=== PATIENT | male | born 1990 | race Caucasian/White ===

== ENCOUNTER → 2020-08-14 14:08 | Outpatient (BNVA) | payer OTHER, SELFPAY | PROVIDERS: PCP Internal Medicine; Visit Provider Surgery | DX: Z76.89 Persons encountering health services in other specified circumstances (principal) ==

== ENCOUNTER → 2020-08-18 09:26 | Outpatient (BNVA) | payer OTHER, SELFPAY | PROVIDERS: Visit Provider Dietitian, Registered | DX: Z76.89 Persons encountering health services in other specified circumstances (principal) ==

== ENCOUNTER → 2020-08-28 07:31 | Outpatient (REF) | payer OTHER, SELFPAY ==
--- NOTE | 2020-08-28 07:30 | CA_ITS ---
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 The visually estimated ejection fraction is between 60-65%. - No obvious valvular pathology seen on this study. Findings Left Ventricle Normal left ventricular cavity size. There is normal left ventricular wall thickness. The left ventricular systolic function is normal. The visually estimated ejection fraction is between 60-65%. There is no evidence of regional wall motion abnormalities. Diastolic function is normal for age. E/E prime ratio is <8, consistent with normal filling pressures. Right Ventricle Normal right ventricular cavity size and systolic function. Atria The left atrium is normal in size. The right atrium is normal in size. Aortic Valve There is a normal trileaflet aortic valve. There is no aortic valve stenosis. There is no aortic valve regurgitation. Mitral Valve The mitral valve appears normal. There is trace mitral valve regurgitation. There is no mitral valve stenosis. Pulmonic Valve The pulmonic valve was not well visualized. Tricuspid Valve Normal tricuspid valve structure. There is mild tricuspid valve regurgitation. The pulmonary artery systolic pressure is normal. Great Vessels The aortic annulus, sinuses of valsalva, and asc aorta are normal in size. Venous The inferior vena cava is normal in size and collapses greater than 50% with inspiration. Pericardium/Pleural There is no evidence of pericardial effusion. Prior Study Comparison No prior study available for comparison. Recommendations, Care & Conclusions No obvious valvular pathology seen on this study. Measurements 2D Linear Measurements IVSd: 0.98 0.6-0.9/0.6-1.0 cm LVIDd: 4.69 3.9-5.3/4.2-5.9 cm LVIDd Index: 2.01 2.4-3.2/2.2-3.1 cm/m2 LVIDs: 2.75 2.0-3.6 cm LVPWd: 1.03 0.7-1.1 cm Ao Root: 3.40 2.1-3.5 cm LA Diam: 3.90 2.7-3.8/3.0-4.0 cm LAIDs Index: 1.67 1.5-2.3 cm/m2 LV Mass: 205.09 67-162/88-224 g LV Mass Index: 88.02 43-95/49-115 g/m2 LVOT Diam: 2.00 3.0+(-)1.3 cm Mitral Valve MV Pk E: 1.02 MV PK A: 0.83 MV Decel Time: 158.00 E/A: 1.20 E'Lateral: 13.90 E'Medial: 11.40 E/E' Med: 8.90 E/E' Lat: 7.30 PHT: 46.00 MVA PHT: 4.78 Decel [place]: 6.46 Aortic Valve AoV Pk Jeremy: 1.33 AoV Mn Jeremy: 0.89 AoV VTI: 0.27 AoV Pk Grad: 7.00 Aov Mn Grad: 4.00 ARNALDO Cont.VTI: 2.37 LVOT LVOT Pk Jeremy: 1.03 LVOT Mn Jeremy: 0.67 LVOT VTI: 0.20 LVOT Pk Grad: 4.00 LVOT Mn Grad: 2.00 LVOT Diam: 2.00 LVOT Area: 3.14 Diastolic Function MV Pk E: 1.02 MV Pk A: 0.83 E/A: 1.20 E'Medial: 11.40 E/E' Med: 8.90 E' Laterial: 13.90 E/E' Lat: 7.30 Tricuspid Valve TR Pk Jeremy: 2.06 TR Pk Grad: 17.00 RA Press: 3.00 RVSP: 20.00 Great Vessels Aorta Ao Root-2D: 3.40 2.0-3.7 cm Ao Asc: 3.00 2.1-3.4 cm Pulmonary Valve PV Pk Jeremy: 1.06 Peak PV Grad: 4.00 Updated in Other Vendor System with Status of Final Adrien Singer MD electronically signed on 08/29/2020 9:16:45 AM with status of Final
== END ==
LOC: HO.CARD 07:31
PROVIDERS: PCP Internal Medicine; Visit Provider Internal Medicine Cardiovascular Disease
DX: Z01.810 Encounter for preprocedural cardiovascular examination (principal); R07.9 Chest pain, unspecified; E66.9 Obesity, unspecified; Z68.37 Body mass index [BMI] 37.0-37.9, adult
CPT/HCPCS: 93306

== ENCOUNTER → 2020-09-11 13:19 | Outpatient (BNVA) | payer OTHER, SELFPAY | PROVIDERS: PCP Internal Medicine; Visit Provider Physician Assistant | DX: Z76.89 Persons encountering health services in other specified circumstances (principal) ==

== ENCOUNTER → 2020-11-05 08:10 | Outpatient (BNVA) | payer OTHER, SELFPAY | PROVIDERS: PCP Internal Medicine; Visit Provider Physician Assistant | DX: Z76.89 Persons encountering health services in other specified circumstances (principal) ==

== ENCOUNTER → 2020-12-01 10:32 | Outpatient (BNVA) | payer OTHER, SELFPAY | PROVIDERS: PCP Internal Medicine; Visit Provider Dietitian, Registered ==

== ENCOUNTER 2020-12-22 09:24 | Outpatient (REF) | payer OTHER, SELFPAY ==
[2020-12-22 11:53] LABS: Vitamin D 25-OH Total 21.8 ng/mL (>30)
[2020-12-26 10:42] LABS: Vitamin B1 6 nmol/L (8-30)
== END 2020-12-22 09:25 | disposition home or self-care (01) ==
LOC: HO.LAB 09:24
PROVIDERS: PCP Internal Medicine; Visit Provider Surgery
DX: Z01.818 Encounter for other preprocedural examination (principal); E66.9 Obesity, unspecified; Z68.35 Body mass index [BMI] 35.0-35.9, adult; E51.9 Thiamine deficiency, unspecified; E55.9 Vitamin D deficiency, unspecified
CPT/HCPCS: 36415; 82306; 84425

== ENCOUNTER → 2021-02-16 14:50 | Outpatient (BNVA) | payer OTHER, SELFPAY | PROVIDERS: PCP Internal Medicine; Visit Provider Surgery ==

== ENCOUNTER 2021-04-30 14:49 | Outpatient (REF) | payer OTHER, SELFPAY ==
[2021-04-30 16:58] LABS: Vitamin D 25-OH Total 13.3 ng/mL (>30)
[2021-05-05 12:27] LABS: Vitamin B1 15 nmol/L (8-30)
== END 2021-04-30 14:50 | disposition home or self-care (01) ==
LOC: HO.LAB 14:49
PROVIDERS: PCP Internal Medicine; Referring Provider Internal Medicine; Visit Provider Surgery
DX: Z01.818 Encounter for other preprocedural examination (principal); E66.09 Other obesity due to excess calories; Z68.37 Body mass index [BMI] 37.0-37.9, adult; E51.9 Thiamine deficiency, unspecified
CPT/HCPCS: 36415; 82306; 84425

== ENCOUNTER → 2021-05-14 10:30 | Outpatient (BNVA) | payer OTHER, SELFPAY | PROVIDERS: PCP Internal Medicine; Referring Provider Internal Medicine; Visit Provider Surgery ==

== ENCOUNTER → 2021-05-28 09:43 | Outpatient (BNVA) | payer OTHER, SELFPAY | PROVIDERS: PCP Internal Medicine; Referring Provider Internal Medicine; Visit Provider Surgery ==

== ENCOUNTER → 2021-07-27 14:55 | Outpatient (BNVA) | payer OTHER, SELFPAY | PROVIDERS: PCP Internal Medicine; Referring Provider Internal Medicine; Visit Provider Surgery ==

== ENCOUNTER 2021-08-24 08:49 | Outpatient (REF) | payer OTHER, SELFPAY ==
[2021-08-24 10:59] LABS: Vitamin D 25-OH Total 20.4 ng/mL (>30)
== END 2021-08-24 08:50 | disposition home or self-care (01) ==
LOC: HO.LAB 08:49
PROVIDERS: Absent Provider Surgery; PCP Internal Medicine; Visit Provider Physician Assistant Surgical
DX: Z01.818 Encounter for other preprocedural examination (principal); E66.9 Obesity, unspecified; Z68.36 Body mass index [BMI] 36.0-36.9, adult; E55.9 Vitamin D deficiency, unspecified
CPT/HCPCS: 36415; 82306

== ENCOUNTER 2021-10-25 10:07 | Outpatient (REF) | payer OTHER, SELFPAY ==
--- NOTE | ~2021-10-25 | US_ITS ---
EXAMINATION: US COMPLETE ABDOMEN WITH LIVER ELASTOGRAPHY CLINICAL INFORMATION: Obesity. COMPARISON: None. TECHNIQUE: Real-time imaging of the abdominal viscera. Noninvasive ultrasound liver fibrosis assessment is performed using V[employer] ElastPQ point quantification shear wave elastography (pSWE) with a C5-2 MHz transducer. Multiple elastography samples are obtained. FINDINGS: PANCREAS: The pancreas is not well seen due to body habitus. ABDOMINAL AORTA: The proximal and distal abdominal aorta is of normal caliber. The mid segment is not well visualized. INFERIOR VENA CAVA: Visualized portions are normal. LIVER: The liver demonstrates normal size, contour and diffuse increased echogenicity with areas of focal fatty sparing scattered throughout the liver. No focal lesion or intrahepatic biliary duct dilatation. The right lobe measures 19.0 cm in length. The left lobe measures 15.0 cm in length. Portal flow is hepatopedal. Shear wave liver elastography median stiffness is 1.67 m/s (reference: normal median stiffness is 1.3 m/s or less). IQR/median stiffness to assess sampling precision is 0.3 (reference: good quality data set is IQR/median stiffness of 0.15 or less). GALLBLADDER: Normal. The gallbladder is physiologically distended without evidence of stones, sludge, polyps, wall thickening or pericholecystic fluid. COMMON BILE DUCT: Normal in caliber measuring 0.4 cm in diameter. RIGHT KIDNEY: Normal. No hydronephrosis. No renal calculi or focal parenchymal lesions. The kidney measures 13.0 cm in maximum dimension. LEFT KIDNEY: Normal. No hydronephrosis. No renal calculi or focal parenchymal lesions. The kidney measures 12.0 cm in maximum dimension. SPLEEN: Normal. The spleen measures 12.0 cm in maximum dimension. FREE FLUID: None. US/US abdomen comp w elastography IMPRESSION: 1. Diffuse hepatic steatosis with areas of scattered focal fatty sparing. No solid lesion or intrahepatic ductal dilatation. The rest of the abdominal ultrasound is unremarkable. 2. Liver elastography: Median liver stiffness 1.67 m/s corresponds to ACLD ruled out. REFERENCE: Society of Radiologists in Ultrasound Liver Stiffness Thresholds (2019): LIVER STIFFNESS THRESHOLDS: *Liver Stiffness equal or less than 1.3 m/s: High probability of being normal. *Liver Stiffness less than 1.7 m/s: In the absence of other known clinical signs, rules out compensated advanced chronic liver disease. *Liver Stiffness 1.7-2.1 m/s: Suggestive of compensated advanced chronic liver disease but need further test for confirmation. *Liver Stiffness over 2.1 m/s: Rules in compensated advanced chronic liver disease. *Liver Stiffness over 2.4 m/s: Suggestive of clinically significant portal hypertension. QUALITY OF DATA SET: *IQR/Median value equal or less than 0.15 implies a quality data set. *IQR/Median value over 0.15 implies a poor quality data set. SIGNIFICANT CHANGE FROM PRIOR EXAM: Significant change if liver stiffness measurement is 10% or greater from prior exam. OTHER CONSIDERATIONS: The stage of liver fibrosis may be overestimated in the setting of acute hepatitis, liver inflammation, elevated liver function tests, hepatic vascular congestion, obstructive cholestasis, non-fasting state, and infiltrative diseases such as amyloidosis and lymphoma. In some patients with NAFLD, the liver stiffness thresholds for compensated advanced chronic liver disease may be lower. In causes other than viral hepatitis and NAFLD, liver stiffness thresholds are not well established.
== END 2021-10-25 10:08 | disposition home or self-care (01) ==
LOC: HO.US 10:07
PROVIDERS: PCP Internal Medicine; Visit Provider Surgery
DX: E66.09 Other obesity due to excess calories (principal); J45.909 Unspecified asthma, uncomplicated; K21.9 Gastro-esophageal reflux disease without esophagitis; Z79.899 Other long term (current) drug therapy; Z68.37 Body mass index [BMI] 37.0-37.9, adult
CPT/HCPCS: 76705; 76981

== ENCOUNTER 2021-11-12 07:56 | Outpatient (REF) | payer OTHER, SELFPAY | END 2021-11-12 07:57 | disposition home or self-care (01) | LOC: HO.XRAY 07:56 | PROVIDERS: Visit Provider Surgery | DX: Z13.89 Encounter for screening for other disorder (principal) ==

== ENCOUNTER → 2021-12-03 10:23 | Outpatient (BNVA) | payer OTHER, SELFPAY | PROVIDERS: PCP Internal Medicine; Referring Provider Internal Medicine; Visit Provider Internal Medicine Gastroenterology ==

== ENCOUNTER 2022-03-22 05:41 | Emergency (ER) | payer OTHER, SELFPAY ==
--- NOTE | 2022-03-22 | ECG_ITS ---
Test Reason : Chest pain Blood Pressure : / mmHG Vent. Rate : 135 BPM Atrial Rate : 135 BPM P-R Int : 138 ms QRS Dur : 092 ms QT Int : 280 ms P-R-T Axes : 045 133 -08 degrees QTc Int : 420 ms Sinus tachycardia Right axis deviation Nonspecific ST and T wave abnormality Abnormal ECG When compared with EKG jul 2020, ventricular rate higher. Referred By: Generic ED Physician Electronically Signed By:LAUREN ROBERSON
--- NOTE | ~2022-03-22 | XR_ITS ---
EXAMINATION: XR CHEST CLINICAL INFORMATION: Chest pain COMPARISON: 07/08/2020 TECHNIQUE: Frontal view of the chest was obtained. FINDINGS: Cardiac leads overlie the chest. The lungs are well expanded. There is no focal consolidation, edema, or effusion. No pneumothorax. The cardiomediastinal silhouette is within normal limits. No acute osseous abnormality. XR/XR chest 1V IMPRESSION: Clear lungs.
[2022-03-22 05:51] VITALS: BP 124/83; PULSE 118; RESP 24; TEMP 37.3; O2SAT 97; BMI 39.0
[2022-03-22 06:10] VITALS: BP 114/77; PULSE 111; RESP 20; O2SAT 97
[2022-03-22 06:16] LABS: MANUAL DIFF FLAG NO
[2022-03-22 06:17] LABS: Basophils Percent Auto 0.5 % (0-2); Eosinophils Absolute Auto 0.3 X10*3/uL (0.0-0.4); Eosinophils Percent Auto 3.2 % (0-4); Hemoglobin 14.5 g/dl (14.0-18.0); Imm Gran Abs Auto 0.02 X10*3/uL (0.00-0.03); Imm Gran Pct Auto 0.2 % (0.0-0.4); Lymphocytes Absolute Auto 0.8 X10*3/uL (1.2-4.9); Lymphocytes Percent Auto 9.5 % (20-40); Mean Corpuscular HGB Conc 36.3 g/dl (31.0-36.0); Mean Corpuscular Hemoglobin 31.9 pg (27.0-33.0); Mean Corpuscular Volume 88.1 fL (80.0-98.0); Monocytes Absolute Auto 0.4 X10*3/uL (0.1-1.2); Monocytes Percent Auto 4.7 % (2-11); Neutrophils Absolute Auto 6.7 x10*3/uL (2.0-8.3); Neutrophils Percent Auto 81.9 % (45-73); Platelet Count 142 X10*3/uL (160-400); Red Blood Count 4.54 X10*6/uL (4.60-5.80); Red Cell Distribution Width 13.1 % (11.0-16.0); White Blood Count 8.1 X10*3/uL (4.8-10.8)
[2022-03-22 06:36] LABS: Troponin-I High Sensitivity < 3.5 ng/L (<3.5-35.0)
[2022-03-22 06:42] LABS: Alanine Aminotransferase 95 U/L (0-40); Albumin Level 4.4 g/dL (3.5-5.0); Alkaline Phosphatase 151 U/L (39-117); Anion Gap 14 (12-20); Aspartate Amino Transferase 46 U/L (5-37); Bilirubin Total 0.8 mg/dL (0.0-1.0); Blood Urea Nitrogen 18 mg/dL (9-16); Carbon Dioxide 20 mmol/L (22-29); Chloride 106 mmol/L (96-108); Creatinine Clr Calc Pharmacy 122.2; Estimated Glomerular Filt Rate > 60; Glucose Random 113 mg/dL (60-115); Potassium 4.1 mmol/L (3.3-5.1); Sodium 136 mmol/L (135-145); Total Protein 8.8 g/dL (6.5-8.0)
--- NOTE | 2022-03-22 06:44 | ED_ITS ---
HPI - Chest Pain General Chief Complaint: Chest Pain Stated Complaint: head & chest pain ; 2nd dose moderna 03/21 Time Seen by Provider: 03/22/22 06:36 Source: patient Limitations: no limitations History of Present Illness HPI narrative: This is a 31 years old male presented to emergency room with the chief complaint of chest pain since yesterday, he states that he received his COVID vaccine with Moderna yesterday, his since then he has been having chest pain, he states this similar happened with the 1st dose of COVID vaccine. He denies any shortness of breath, radiation of the pain. The pain is somewhat pleuritic worse when he takes deep breath. MD complaint: chest pain Onset (ago): day(s) (1) Timing of current episode: constant Prior episodes: Yes Onset: during rest Pain location: substernal Pain radiation: none Severity: moderate Quality: aching Relieving factors: nothing Exacerbating factors: inspiration Context: other (covid vaccine) Risk Factors Coronary artery disease risk factors: none Related Data Home Medications Medication Instructions Recorded Confirmed acetaminophen 500 mg tablet 1,000 mg PO Q6H PRN 11/05/20 02/18/22 (Tylenol Extra Strength) citalopram 20 mg tablet 20 mg PO DAILY 04/30/21 02/18/22 phentermine 37.5 mg capsule 37.5 mg PO DAILY 02/18/22 02/18/22 Previous Rx's Medication Instructions Recorded pantoprazole 40 mg tablet,delayed 40 mg PO DAILY #90 tab 12/03/21 release albuterol sulfate 90 mcg/actuation 2 puff INHALATION Q4H PRN #8.5 g 02/18/22 aerosol inhaler fluticasone propionate 44 1 puff INHALATION BID #10.6 g 02/18/22 mcg/actuation HFA aerosol inhaler (Flovent HFA) naproxen 500 mg tablet (Naprosyn) 500 mg PO BID PRN #20 tab 03/22/22 Allergies Allergy/AdvReac Type Severity Reaction Status Date / Time gluten Allergy Mild celiac Verified 02/18/22 14:01 lactose Allergy Mild unknown Verified 02/18/22 14:01 Review of Systems Review of Systems: Yes all other systems are reviewed and are negative Constitutional: Constitutional: Reports no additional constitutional complaints ENT: Reports system reviewed and no additional complaints, except as documented Cardiovascular: Cardiovascular: Reports no additional cardiovascular complaints Respiratory: Respiratory: Reports no additional respiratory complaints Musculoskeletal: Musculoskeletal: Reports no additional musculoskeletal complaints [facility] Past Medical History Medical History Abdominal pain Acute ulcerative colitis POLI (acute kidney injury) Anxiety Asthma Crohn disease De Quervain's disease (tenosynovitis) GERD (gastroesophageal reflux disease) H/O sigmoidoscopy IBS (irritable bowel syndrome) Obesity (BMI 30-39.9) Partial obstruction of colon Portal vein thrombosis SBO (small bowel obstruction) Ulcerative colitis Surgical History H/O total colectomy History of arthroscopy of left shoulder History of endoscopy History of ileostomy History of incision and drainage Hx laparoscopic cholecystectomy Hx of colonoscopy Family History Family History Sister Crohn's disease Father History of ulcerative colitis Sister No problems noted. Sister No problems noted. Mother No problems noted. Brother No problems noted. Brother No problems noted. Social History Social History Housing: Apartment Alcohol intake: current Alcohol intake frequency: holidays/special occasions only Alcohol type: hard liquor Patient Tobacco Use Status: Former Tobacco user Tobacco use type: Cigarette Years Smoked: quit high school e-Cigarette/Vaping Use: Never Used Second Hand Smoke Exposure: No Advance Directives: No Advance Directives Information Provided: No Current occupational status: employed Cognitive needs: No Hearing needs: No Vision needs: No Physical Exam Vital Signs: Vital Signs: Last Vital Signs Temp 99.2 F 03/22/22 05:51 Pulse 105 H 03/22/22 09:19 Resp 20 03/22/22 09:19 BP 104/67 03/22/22 09:19 Pulse Ox 99 03/22/22 09:19 BMI result Body Mass Index 39.0 Const: General: cooperative Nutritional Appearance: average body habitus and well nourished Orientation/consciousness: patient oriented x3 Limitations: no limitations HEENT: Head: Yes normal to inspection General nose exam: Normal external nose present Face and sinus: Yes normal facial exam Mouth: Normal oral and palatal mucosa present Teeth and gingiva: dentition normal Throat: Yes posterior oropharynx normal Neck: Neck: Yes normal visual inspection, Yes full ROM, Yes no lymphadenopathy, Yes no meningeal signs and Yes trachea midline Chest: Chest palpation & inspection: normal inspection of the chest Resp: Effort & Inspection: normal respiratory effort and able to speak in complete sentences Auscultation: clear to auscultation bilaterally Cardio: Jugular venous distension: no JVD Rate: regular rate Rhythm: regular rhythm GI: Inspection: Yes normal to inspection Palpation (GI): Soft to palpation, not firm, nontender and no guarding Skin: General skin exam: no rashes or lesions noted and elasticity normal Neuro: General: patient oriented x3 and no meningeal signs Course Reevaluation(s) Reevaluation #1: feels much better at this time, troponin x2 negative, D-dimer is negative. I think at this point we could discharge the patient home being most likely under reaction to the modern MDM - Chest Pain Lab Data Attestation: I reviewed the patient's lab results. Result diagrams: 03/22/22 06:10 03/22/22 06:10 Labs: Lab Results 03/22/22 03/22/22 03/22/22 Range/Units 06:10 06:10 06:10 WBC 8.1 (4.8-10.8) X10*3/uL RBC 4.54 L (4.60-5.80) X10*6/uL Hgb 14.5 (14.0-18.0) g/dl Hct 40.0 L (42.0-52.0) % MCV 88.1 (80.0-98.0) fL MCH 31.9 (27.0-33.0) pg MCHC 36.3 H (31.0-36.0) g/dl RDW 13.1 (11.0-16.0) % Plt Count 142 L (160-400) X10*3/uL MPV 11.0 (9.4-12.4) fL Immature Gran % (Auto) 0.2 (0.0-0.4) % Neut % (Auto) 81.9 H (45-73) % Lymph % (Auto) 9.5 L (20-40) % [place] % (Auto) 4.7 (2-11) % Eos % (Auto) 3.2 (0-4) % Baso % (Auto) 0.5 (0-2) % Lymph # (Auto) 0.8 L (1.2-4.9) X10*3/uL [place] # (Auto) 0.4 (0.1-1.2) X10*3/uL Eos # (Auto) 0.3 (0.0-0.4) X10*3/uL Baso # (Auto) 0.0 (0.0-0.2) X10*3/uL Abs Immat Gran (auto) 0.02 (0.00-0.03) X10*3/uL Absolute Neuts (auto) 6.7 (2.0-8.3) x10*3/uL Absolute Nucleated RBC 0.000 (0.0-0.012) X10*3/uL Nucleated RBC % (auto) 0.0 (0.0-0.2) /100WBC D-Dimer High Sensitivty NG/ML Sodium 136 (135-145) mmol/L Potassium 4.1 (3.3-5.1) mmol/L Chloride 106 (96-108) mmol/L Carbon Dioxide 20 L (22-29) mmol/L Anion Gap 14 (12-20) BUN 18 H (9-16) mg/dL Creatinine 1.21 (0.5-1.4) mg/dL Estim Creat Clear Calc 122.2 Estimated GFR > 60 Random Glucose 113 (60-115) mg/dL Calcium 10.0 (8.4-10.2) mg/dL Total Bilirubin 0.8 (0.0-1.0) mg/dL AST 46 H (5-37) U/L ALT 95 H (0-40) U/L Alkaline Phosphatase 151 H (39-117) U/L Troponin I High Sens < 3.5 (<3.5-35.0) ng/L Total Protein 8.8 H (6.5-8.0) g/dL Albumin 4.4 (3.5-5.0) g/dL 03/22/22 03/22/22 Range/Units 07:08 08:08 WBC (4.8-10.8) X10*3/uL RBC (4.60-5.80) X10*6/uL Hgb (14.0-18.0) g/dl Hct (42.0-52.0) % MCV (80.0-98.0) fL MCH (27.0-33.0) pg MCHC (31.0-36.0) g/dl RDW (11.0-16.0) % Plt Count (160-400) X10*3/uL MPV (9.4-12.4) fL Immature Gran % (Auto) (0.0-0.4) % Neut % (Auto) (45-73) % Lymph % (Auto) (20-40) % [place] % (Auto) (2-11) % Eos % (Auto) (0-4) % Baso % (Auto) (0-2) % Lymph # (Auto) (1.2-4.9) X10*3/uL [place] # (Auto) (0.1-1.2) X10*3/uL Eos # (Auto) (0.0-0.4) X10*3/uL Baso # (Auto) (0.0-0.2) X10*3/uL Abs Immat Gran (auto) (0.00-0.03) X10*3/uL Absolute Neuts (auto) (2.0-8.3) x10*3/uL Absolute Nucleated RBC (0.0-0.012) X10*3/uL Nucleated RBC % (auto) (0.0-0.2) /100WBC D-Dimer High Sensitivty < 150 NG/ML Sodium (135-145) mmol/L Potassium (3.3-5.1) mmol/L Chloride (96-108) mmol/L Carbon Dioxide (22-29) mmol/L Anion Gap (12-20) BUN (9-16) mg/dL Creatinine (0.5-1.4) mg/dL Estim Creat Clear Calc Estimated GFR Random Glucose (60-115) mg/dL Calcium (8.4-10.2) mg/dL Total Bilirubin (0.0-1.0) mg/dL AST (5-37) U/L ALT (0-40) U/L Alkaline Phosphatase (39-117) U/L Troponin I High Sens < 3.5 (<3.5-35.0) ng/L Total Protein (6.5-8.0) g/dL Albumin (3.5-5.0) g/dL ECG Data ECG #1: Attestation: I personally reviewed and interpreted this ECG as follows: ECG interpretation date: 03/22/22 ECG interpretation time: 06:50 Prior ECG tracings: available for review Interpretation: CLINICAL INFORMATION: Chest pain COMPARISON: 07/08/2020 TECHNIQUE: Frontal view of the chest was obtained. FINDINGS: Cardiac leads overlie the chest. The lungs are well expanded. There is no focal consolidation, edema, or effusion. No pneumothorax. The cardiomediastinal silhouette is within normal limits. No acute osseous abnormality. XR/XR chest 1V IMPRESSION: Clear lungs. ? Pacemaker model: sinus tachycardia rate [address]-T changes Discharge Plan Discharge Clinical Impression: Chest pain Patient Disposition: Home, Self-Care Instructions: Chest Pain (DC) Additional Instructions: please call your primary care physician today make a follow-up appointment, return to the emergency room if you worse develops fevers she is vomiting. Prescriptions: New naproxen [Naprosyn] 500 mg tablet 500 mg PO BID PRN (Reason: PAIN) Qty: 20 0RF No Action phentermine 37.5 mg capsule 37.5 mg PO DAILY 0RF Rx Instructions: must administer 30 minutes before or 1-2 hours after breakfast albuterol sulfate 90 mcg/actuation HFA aerosol inhaler 2 puff inhalation Q4H PRN (Reason: bronchospasm) Qty: 8.5 0RF Flovent HFA 44 mcg/actuation HFA aerosol inhaler 1 puff inhalation BID Qty: 10.6 3RF Rx Instructions: administer with spacer acetaminophen [Tylenol Extra Strength] 500 mg tablet 1,000 mg PO Q6H PRN0RF citalopram 20 mg tablet 20 mg PO DAILY 0RF pantoprazole 40 mg tablet,delayed release (DR/EC) 40 mg PO DAILY Qty: 90 1RF Referrals: Winter Steele MD [Primary Care Provider] - Stand Alone Forms: Work/School Release Interventions: ED Discharge Assessment Last Done: 03/22/22 09:30 Discharge Date/Time: 03/22/22 09:30
[2022-03-22] MEDS: LORazepam 2 MG/ML VIAL 0.5 MG IVPUSH (06:49)
[2022-03-22] MEDS: Ketorolac Tromethamine 30 MG/ML VIAL IVPUSH (06:50)
[2022-03-22 07:32] LABS: D Dimer High Sensitivity < 150 NG/ML
[2022-03-22 07:45] VITALS: BP 109/73; PULSE 99; RESP 18; O2SAT 97
--- NOTE | 2022-03-22 07:47 | PC.NURSE ---
pt resting in the stretcher, shaking his legs, reports that his head is pounding pain at 10/10, normal sinus to tachy on the monitor, will range from 99-110.
[2022-03-22] MEDS: 0.9 % Sodium Chloride 1,000 ML 999 ML IVCONT (08:27)
[2022-03-22] MEDS: Morphine Sulfate 4 MG/ML CARTRIDGE IVPUSH (08:27)
[2022-03-22 08:30] LABS: Troponin-I High Sensitivity < 3.5 ng/L (<3.5-35.0)
[2022-03-22 08:52] VITALS: BP 109/62; PULSE 103; RESP 16; O2SAT 97
[2022-03-22 09:19] VITALS: BP 104/67; PULSE 105; RESP 20; O2SAT 99
--- NOTE | 2022-03-22 09:19 | PC.NURSE ---
pt reports feeling better pain at 6/10
== END 2022-03-22 09:30 | disposition home or self-care (01) ==
PROVIDERS: Emergency Provider Emergency Medicine; PCP Internal Medicine
DX: R07.89 Other chest pain (principal); R51.9 Headache, unspecified; Z20.822 Contact with and (suspected) exposure to COVID-19; Z79.899 Other long term (current) drug therapy; Z87.891 Personal history of nicotine dependence
CPT/HCPCS: 36415; 71045; 80053; 84484; 85025; 85379; 93005; 96361; 96374; 96375; 99284; 99285; J1885; J2060; J2270

== ENCOUNTER 2022-07-12 13:59 | Outpatient (REF) | payer OTHER, SELFPAY ==
--- NOTE | ~2022-07-12 | CT_ITS ---
EXAMINATION: CT ENTEROGRAPHY ABDOMEN AND PELVIS WITH CONTRAST CLINICAL INFORMATION: Periumbilical pain COMPARISON: Previous CT of the abdomen and pelvis most recent July 2018 and abdominal ultrasound October 2021 TECHNIQUE: Study performed with oral VoLumen (1350 mL) and 480 mL of water to distend the abdomen. The patient was injected with 85 mL Omnipaque 350 intravenous contrast which was administered without adverse effect. Coronal and sagittal reformatted images were obtained at the technologist's workstation. This CT examination was performed using dose optimization techniques as appropriate, variously including the following: *Automated exposure control *Adjustment of mA and/or kV according to patient size (this includes techniques or standardized protocols for targeted exams where dose is matched to indication/reason for exam; i.e. extremities or head) *Use of iterative reconstruction technique DLP: 744 mGy-cm FINDINGS: GASTROINTESTINAL FINDINGS: Stomach: Well-distended and normal in appearance. Small intestine: There is a right lower quadrant ileostomy. There is a small parastomal hernia containing small bowel and fat. No evidence of small bowel dilatation, wall thickening or enhancement or stricture is seen. Large intestine: Post colectomy. The rectum is normal. No perirectal abscess. Additional findings: No abnormal enhancement of the vasa recta or significant mesenteric or retroperitoneal lymphadenopathy is seen. No abdominal abscess or fistulous tract demonstrated. ABDOMINAL AND PELVIC CT FINDINGS: Liver, gallbladder, biliary tract: There is fatty infiltration of the liver. There are areas of focal fatty sparing. No focal liver lesion. Contracted gallbladder. No biliary duct dilatation. Pancreas: Normal Spleen: Normal Adrenal glands and kidneys: Normal Ureters and bladder: Normal Lymphovascular structures: There is shotty small bowel mesentery lymphadenopathy. No enlarged lymph nodes. No ascites. 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 Bones: Bilateral femoral head AVN. Lung bases: Normal Small umbilical hernia containing fat. CT/CT enterography IMPRESSION: Post colectomy with right lower quadrant ileostomy. Small parastomal hernia containing small bowel and fat. No evidence of active inflammatory disease of small bowel or rectum. Fatty liver. 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 Small umbilical hernia containing fat. Bilateral femoral head AVN.
[2022-07-12] MEDS: iohexoL 350 MG/ML 100 ML INFUS..BTL IV (15:53)
== END 2022-07-12 14:00 | disposition home or self-care (01) ==
LOC: HO.US 13:59
PROVIDERS: Visit Provider Internal Medicine Gastroenterology
DX: R10.33 Periumbilical pain (principal)
CPT/HCPCS: 74177; Q9967

== ENCOUNTER 2022-12-26 10:21 | Outpatient (REF) | payer OTHER, SELFPAY ==
[2022-12-26 10:34] LABS: MANUAL DIFF FLAG NO
[2022-12-26 11:16] LABS: Basophils Absolute Auto 0.1 X10*3/uL (0.0-0.2); Basophils Percent Auto 0.7 % (0-2); Eosinophils Absolute Auto 0.7 X10*3/uL (0.0-0.4); Eosinophils Percent Auto 9.5 % (0-4); Hematocrit 40.2 % (42.0-52.0); Imm Gran Abs Auto 0.03 X10*3/uL (0.00-0.03); Imm Gran Pct Auto 0.4 % (0.0-0.4); Lymphocytes Absolute Auto 2.4 X10*3/uL (1.2-4.9); Lymphocytes Percent Auto 33.3 % (20-40); Mean Corpuscular HGB Conc 34.8 g/dl (31.0-36.0); Mean Corpuscular Hemoglobin 31.4 pg (27.0-33.0); Mean Corpuscular Volume 90.1 fL (80.0-98.0); Mean Platelet Volume 11.6 fL (9.4-12.4); Monocytes Absolute Auto 0.4 X10*3/uL (0.1-1.2); Monocytes Percent Auto 5.9 % (2-11); Neutrophils Absolute Auto 3.7 x10*3/uL (2.0-8.3); Neutrophils Percent Auto 50.2 % (45-73); Platelet Count 181 X10*3/uL (160-400); Red Blood Count 4.46 X10*6/uL (4.60-5.80); Red Cell Distribution Width 13.2 % (11.0-16.0); White Blood Count 7.3 X10*3/uL (4.8-10.8)
[2022-12-26 11:31] LABS: Estimated Average Glucose 105 mg/dL; Hemoglobin A1c % 5.3 %
[2022-12-26 11:49] LABS: Alanine Aminotransferase 125 U/L (0-40); Albumin Level 4.2 g/dL (3.5-5.0); Alkaline Phosphatase 155 U/L (39-117); Anion Gap 14 (12-20); Aspartate Amino Transferase 52 U/L (5-37); Bilirubin Total 0.7 mg/dL (0.0-1.0); Blood Urea Nitrogen 16 mg/dL (9-16); C Reactive Protein 0.27 mg/dL (< or = 0.50); Calcium 9.4 mg/dL (8.4-10.2); Carbon Dioxide 21 mmol/L (22-29); Chloride 108 mmol/L (96-108); Cholesterol 226 mg/dL; Estimated Glomerular Filt Rate > 60; Glucose Random 131 mg/dL (60-115); HDL Cholesterol 37 mg/dL; Potassium 4.1 mmol/L (3.3-5.1); Sodium 139 mmol/L (135-145); Total Protein 7.5 g/dL (6.5-8.0); Triglycerides 422 mg/dL
[2022-12-26 11:51] LABS: Erythrocyte Sedimentation Rate 9 MM/HR (0-15)
[2022-12-26 12:18] LABS: Folate 9.3 ng/mL (> or = 4.0); Free T4 (Free Thyroxine) 0.89 ng/dL (0.71-1.85); Thyroid Stimulating Hormone 1.77 uIU/mL (0.32-4.0); Vitamin B12 473 pg/mL (200-900)
== END 2022-12-26 10:22 | disposition home or self-care (01) ==
LOC: HO.LAB 10:21
PROVIDERS: PCP Internal Medicine; Visit Provider Internal Medicine
DX: E78.00 Pure hypercholesterolemia, unspecified (principal)
CPT/HCPCS: 36415; 80053; 80061; 82607; 82746; 83036; 84439; 84443; 85025; 85652; 86140

== ENCOUNTER 2023-02-22 10:04 | Outpatient (REF) | payer OTHER, SELFPAY ==
--- NOTE | ~2023-02-22 | XR_ITS ---
EXAMINATION: XR BILATERAL HIPS WITH AP PELVIS CLINICAL INFORMATION: Right hip pain COMPARISON: 07/12/2022 TECHNIQUE: AP view of the pelvis and single views of each hip were obtained. FINDINGS: No acute fracture or dislocation. 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 Sacroiliac and hip joints are normal. Pubic symphysis is normal. No abnormal soft tissue calcifications. Contrasted urinary bladder and ureters overlies and partially obscures pelvic structures. 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
[2023-02-22 10:40] LABS: Estimated Average Glucose 105 mg/dL; Hemoglobin A1C 138.4899 umol/L; Hemoglobin A1c % 5.3 %
[2023-02-22 10:57] LABS: Alanine Aminotransferase 100 U/L (0-40); Albumin Level 4.7 g/dL (3.5-5.0); Alkaline Phosphatase 133 U/L (39-117); Anion Gap 12 (12-20); Aspartate Amino Transferase 53 U/L (5-37); Bilirubin Total 1.1 mg/dL (0.0-1.0); Blood Urea Nitrogen 16 mg/dL (9-16); Calcium 9.8 mg/dL (8.4-10.2); Carbon Dioxide 26 mmol/L (22-29); Chloride 105 mmol/L (96-108); Cholesterol 234 mg/dL; Estimated Glomerular Filt Rate > 60; Glucose Random 97 mg/dL (60-115); HDL Cholesterol 37 mg/dL; LDL Cholesterol Calculated 146 mg/dl; Potassium 4.6 mmol/L (3.3-5.1); Sodium 138 mmol/L (135-145); Total Protein 7.9 g/dL (6.5-8.0); Triglycerides 259 mg/dL
== END 2023-02-22 10:05 | disposition home or self-care (01) ==
LOC: HO.XRAY 10:04
PROVIDERS: PCP Internal Medicine; Visit Provider Internal Medicine
DX: E78.00 Pure hypercholesterolemia, unspecified (principal); M25.551 Pain in right hip; M25.552 Pain in left hip; R73.9 Hyperglycemia, unspecified
CPT/HCPCS: 36415; 73521; 80053; 80061; 83036

== ENCOUNTER → 2023-04-10 14:46 | Outpatient (BNVA) | payer OTHER, SELFPAY | PROVIDERS: PCP Internal Medicine; Visit Provider Physician Assistant ==

== ENCOUNTER 2023-10-06 08:50 | Outpatient (AMB) | payer BC, SELFPAY ==
--- NOTE | 2023-10-06 08:51 | MHC.PC.OV ---
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[employer] Required: No Accompanied by: Self / Same As Patient Allergies gluten Allergy (Mild, Verified 10/06/23 08:55) celiac lactose Allergy (Mild, Verified 10/06/23 08:55) unknown Tobacco use date assessed: 12/21/22 Dental Screening Dental Screen Date: 10/06/23 Did you have a dental visit in the last 12 months?: No Did you have a dental problem in the last 6 months where you did not have access to dental care?: No Was dental information given to patient?: Patient has dentist HPI HPI Comments History of Present Illness Details 32-year-old male past medical history significant for hypercholesteremia, generalized anxiety disorder, GERD, asthma, fatty liver disease, IBD, ileostomy and placed 2020,palpitations. Patient of Dr. Steele presents today for preop appointment for gastric sleeve, Dr. Arauz at [facility] in [place]. November 22 2019. Under general anesthesia. Patient states he has been cleared by his Photographic Intelligence Officer, Dr. Lewis, Pre K Special Education Teacher Dr. Andujar as well as his Exhaust Emissions Automotive Technician. Patient Denies CP, palpitations, sob and Syncope. While on his Verapamil for palpitations. EKG in office: SR, Right axis deviation, no sig. abnormalities. Pre-op labs ordered. [facility] Medical History (Reviewed 04/10/23 @ 15:08 by Sheba Cameron [facility]) Abdominal pain Acute ulcerative colitis POLI (acute kidney injury) Asthma BMI 35.0-35.9,adult Body mass index (BMI) of 37.0 to 37.9 in adult Crohn disease De Quervain's disease (tenosynovitis) GERD (gastroesophageal reflux disease) H/O sigmoidoscopy IBS (irritable bowel syndrome) Obesity (BMI 30-39.9) Partial obstruction of colon Portal vein thrombosis SBO (small bowel obstruction) Ulcerative colitis Surgical History Hx of colonoscopy Hx laparoscopic cholecystectomy History of ileostomy H/O total colectomy History of incision and drainage History of arthroscopy of left shoulder History of endoscopy Family History Sister Crohn's disease Father History of ulcerative colitis Sister No problems noted. Sister No problems noted. Mother Substance use disorder Mental health disorder Brother No problems noted. Brother No problems noted. Social History Housing: House Alcohol intake: current Alcohol intake frequency: holidays/special occasions only Alcohol type: hard liquor Patient Tobacco Use Status: Former Tobacco user Tobacco use type: Cigarette Years Smoked: quit high school e-Cigarette/Vaping Use: Never Used Second Hand Smoke Exposure: No Current occupational status: employed Cognitive needs: No Hearing needs: No Vision needs: No Questionnaire Thrive Questionnaire Date Thrive assessed: 12/21/22 CHERYL-7 AMB Questionnaire CHERYL-7 Date CHERYL - 7 assessed: 12/21/22 Source: Developed by Drs. Raymond Hein, Kanwal Coello, Dick Henning and colleagues, with an educational monroe from [employer]. Review of Systems Const Denies chills, Denies fatigue, Denies fever(s) and Denies poor appetite Eyes Denies no additional complaints ENT Reports Normal hearing present Card Denies chest pain, Denies syncope, Denies rapid heart rate and Denies dyspnea Resp Denies cough and Denies dyspnea GI Denies change in stool character, Denies constipation, Denies diarrhea, Denies nausea and Denies vomiting Denies dysuria, Denies urinary frequency and Denies urinary urgency Neuro Reports Normal hearing present, Denies confusion and Denies syncope Psych Denies confusion Endo Denies fatigue Physical exam (Primary Care) Vital Signs: Last Vital Signs Pulse 100 10/06/23 08:52 BP 130/74 10/06/23 08:52 Pulse Ox 97 10/06/23 08:52 Oxygen Delivery Method Room Air 10/06/23 08:52 BMI result Body Mass Index 43.4 Tobacco/Smoking Status: Tobacco use Status Tobacco use date assessed 12/21/22 10/06/23 08:57 Patient Tobacco Use Status Former Tobacco user 10/06/23 08:57 Tobacco use type Cigarette 10/06/23 08:57 e-Cigarette/Vaping Use Never Used 10/06/23 08:57 Thrive Assessment: Date of Thrive Assessment Date Thrive assessed 12/21/22 10/06/23 08:57 Const General: No confusion Orientation/consciousness: No confusion HENMT Head: Yes normocephalic and Yes atraumatic Eyes Conjunctivae: conjunctivae normal Chest Chest palpation & inspection: normal inspection of the chest Resp Effort & Inspection: normal respiratory effort Auscultation: clear to auscultation bilaterally, no crackles, no rhonchi and no wheezes Cardio Rate: regular rate Rhythm: regular rhythm Heart sounds: S1 normal heart sound present and S2 normal heart sound present Peripheral pulses: dorsalis pedis present GI Inspection: Yes normal to inspection General: Yes no CVA tenderness Back/Spine/Pelvis Back: no CVA tenderness Neuro General: No confusion Cranial nerves: Yes Normal hearing present Extrem General: No edema Assessment and Plan Assessment & Plan (1) Preop examination: Code(s): Z01.818 - Encounter for other preprocedural examination Plan: EKG completed office noted in HPI. Preop labs ordered. Once preop labs reviewed will make an addendum to this note with patient able to proceed with scheduled gastric sleeve surgery. Please take verapamil with small sip of water prior to procedure. Avoid ASA, ibuprofen ore any blood thinner medication 1 week prior to procedure. (2) Inflammatory bowel disease: Comment: subtotal colectomy and ileostomy 10/2020 Code(s): K52.9 - Noninfective gastroenteritis and colitis, unspecified Plan: Continue to follow with gastroenterology. (3) Palpitations: Code(s): R00.2 - Palpitations Plan: Continue on verapamil 120 mg b.i.d.. Continue to follow with 2nd grade teacher. Plan Keep scheduled follow-up with PCP or follow-up sooner if needed Orders: Orders Prothrombin Time INR Today Z01.812 - Encounter for preprocedural laboratory examination Complete Blood Count Auto Diff Today Z13.0 - Encounter for screening for diseases of the blood and blood-forming organs and certain disorders involving the immune mechanism Comprehensive Met. Panel Today Z.812 - Encounter for preprocedural laboratory examination TSH reflex Free T4 Today Z13.29 - Encounter for screening for other suspected endocrine disorder Coding Level of Care Code Est Pt Level 3 (70893) Diagnoses Preop examination Z.818 Inflammatory bowel disease K52.9 Palpitations R00.2
[2023-10-06 08:52] VITALS: BP 130/74; PULSE 100; O2SAT 97; BMI 43.4
== END 2023-10-06 09:36 | disposition home or self-care (01) ==
PROVIDERS: PCP Internal Medicine; Visit Provider Nurse Practitioner Family
DX: Z01.818 Encounter for other preprocedural examination (principal); K52.9 Noninfective gastroenteritis and colitis, unspecified; R00.2 Palpitations
CPT/HCPCS: 99213

== ENCOUNTER 2023-10-07 08:01 | Outpatient (REF) | payer BC, SELFPAY ==
[2023-10-07 08:29] LABS: MANUAL DIFF FLAG NO
[2023-10-07 08:36] LABS: Basophils Percent Auto 0.4 % (0-2); Eosinophils Absolute Auto 0.6 X10*3/uL (0.0-0.4); Eosinophils Percent Auto 6.4 % (0-4); Hematocrit 40.9 % (42.0-52.0); Hemoglobin 14.6 g/dl (14.0-18.0); Imm Gran Abs Auto 0.03 X10*3/uL (0.00-0.03); Imm Gran Pct Auto 0.3 % (0.0-0.4); Lymphocytes Absolute Auto 1.9 X10*3/uL (1.2-4.9); Lymphocytes Percent Auto 19.4 % (20-40); Mean Corpuscular HGB Conc 35.7 g/dl (31.0-36.0); Mean Corpuscular Hemoglobin 32.2 pg (27.0-33.0); Mean Corpuscular Volume 90.3 fL (80.0-98.0); Mean Platelet Volume 11.2 fL (9.4-12.4); Monocytes Absolute Auto 0.7 X10*3/uL (0.1-1.2); Monocytes Percent Auto 7.1 % (2-11); Neutrophils Absolute Auto 6.4 x10*3/uL (2.0-8.3); Neutrophils Percent Auto 66.4 % (45-73); Platelet Count 177 X10*3/uL (160-400); Red Blood Count 4.53 X10*6/uL (4.60-5.80); Red Cell Distribution Width 12.7 % (11.0-16.0); White Blood Count 9.7 X10*3/uL (4.8-10.8)
[2023-10-07 08:46] LABS: INTERNATIONAL NORM RATIO 0.9 (0.9-1.1); Prothrombin Time 11.4 SEC (11.1-13.3)
[2023-10-07 09:07] LABS: Alanine Aminotransferase 94 U/L (0-40); Albumin Level 4.4 g/dL (3.5-5.0); Alkaline Phosphatase 124 U/L (39-117); Anion Gap 14 (12-20); Aspartate Amino Transferase 56 U/L (5-37); Bilirubin Total 1.1 mg/dL (0.0-1.0); Blood Urea Nitrogen 16 mg/dL (9-16); Calcium 9.5 mg/dL (8.4-10.2); Carbon Dioxide 23 mmol/L (22-29); Chloride 108 mmol/L (96-108); Estimated Glomerular Filt Rate > 60; Glucose Random 101 mg/dL (60-115); Sodium 141 mmol/L (135-145)
[2023-10-07 09:17] LABS: TSH reflex Free T4 2.05 uIU/mL (0.32-4.0)
== END 2023-10-07 08:02 | disposition home or self-care (01) ==
LOC: HO.LAB 08:01
PROVIDERS: Visit Provider Nurse Practitioner Family
DX: Z01.812 Encounter for preprocedural laboratory examination (principal); Z13.0 Encounter for screening for diseases of the blood and blood-forming organs and certain disorders involving the immune mechanism; Z13.29 Encounter for screening for other suspected endocrine disorder
CPT/HCPCS: 36415; 80053; 84443; 85025; 85610

== ENCOUNTER 2023-11-29 13:34 | Outpatient (AMB) | payer BC, SELFPAY ==
[2023-11-29 13:38] VITALS: BP 132/80; PULSE 98; O2SAT 98; BMI 40.6
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
== END 2023-11-29 14:20 | disposition home or self-care (01) ==
PROVIDERS: PCP Internal Medicine; Visit Provider Internal Medicine
DX: Z23 Encounter for immunization (principal); M87.00 Idiopathic aseptic necrosis of unspecified bone; M25.551 Pain in right hip; M25.552 Pain in left hip; R00.2 Palpitations; K76.0 Fatty (change of) liver, not elsewhere classified; K21.9 Gastro-esophageal reflux disease without esophagitis; K52.9 Noninfective gastroenteritis and colitis, unspecified; E78.00 Pure hypercholesterolemia, unspecified; F41.1 Generalized anxiety disorder; Z90.3 Acquired absence of stomach [part of]
CPT/HCPCS: 90471; 90686; 99214

== ENCOUNTER 2024-01-03 18:35 | Outpatient (REF) | payer BC, SELFPAY ==
--- NOTE | ~2024-01-03 | MR_ITS ---
EXAMINATION: MR HIP WITHOUT CONTRAST, RIGHT CLINICAL INFORMATION: Idiopathic aseptic necrosis. 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 COMPARISON: X-ray 02/22/2023. CT 07/12/2022. TECHNIQUE: MRI of the right hip was obtained using routine sequences on a high-field strength magnet. FINDINGS: BONE/JOINTS: Anatomic right hip alignment. Hip joint space is maintained. No significant chondral loss. There is a curvilinear T2 bright/low T1 signal focus in the femoral head, which measures approximately 1.7 x 2.2 cm (transverse, AP). Findings consistent with a focus of avascular necrosis. Similar findings seen on the prior CT scan. No evidence of subchondral collapse. No evidence of significant stress injury. LABRUM: No labral tear is seen. No paralabral cyst. MUSCLES/TENDONS: Mild distal gluteus minimus and medius tendinosis. Remainder of the tendons are intact. No muscle tear. JOINT FLUID/BURSA: No significant greater trochanteric or iliopsoas bursitis. Small hip joint fluid. INTRAPELVIS STRUCTURES: No groin lymphadenopathy. No acute findings in the pelvis. On the coronal T1 sequence of the pelvis, SI joints and symphysis pubis are intact. MR/MR hip RT wo con IMPRESSION: 1. Focus of abnormal signal in the femoral head measuring approximately 1.7 x 2.2 cm, consistent with a focus of avascular necrosis. This correlates with the finding seen on the prior CT. No evidence of subchondral collapse. 2. Mild distal gluteus minimus and medius tendinosis.
--- NOTE | ~2024-01-03 | MR_ITS ---
EXAMINATION: MR HIP WITHOUT CONTRAST, LEFT CLINICAL INFORMATION: Idiopathic aseptic necrosis. Patient reports bilateral hip pain, long-term steroid use due to Crohn's and colitis. COMPARISON: X-ray 02/22/2023. CT 07/12/2022. TECHNIQUE: MRI of the left hip was obtained using routine sequences on a high-field magnet. FINDINGS: BONE/JOINTS: Anatomic left hip alignment. Joint space is maintained. No significant chondral loss. Focus of abnormal bright T2, low T1 signal in the femoral head measuring approximately 2.7 x 1.7 cm (AP, transverse). Findings are consistent with a focus of avascular necrosis, correlating with the prior CT findings. No evidence of subchondral collapse. No evidence of significant stress injury. LABRUM: No labral tear is seen. MUSCLES/TENDONS: Tendons intact. No muscle tear. JOINT FLUID/BURSA: No significant greater trochanteric or iliopsoas bursitis. Small hip joint fluid. INTRAPELVIS STRUCTURES: Subcentimeter left groin lymph nodes, nonspecific. No acute findings in the pelvis. MR/MR hip LT wo con IMPRESSION: 1. Abnormal signal focus in the femoral head measuring 2.7 x 1.7 cm. Findings correlate with the prior CT findings, and consistent with a focus of avascular necrosis. No evidence of subchondral collapse. 2. No labral tear is seen.
== END 2024-01-03 18:36 | disposition home or self-care (01) ==
LOC: HO.MRI 18:35
PROVIDERS: PCP Internal Medicine; Visit Provider Physician Assistant
DX: M87.051 Idiopathic aseptic necrosis of right femur (principal); M87.052 Idiopathic aseptic necrosis of left femur
CPT/HCPCS: 73721

== ENCOUNTER 2024-01-12 11:01 | Outpatient (AMB) | payer BC, SELFPAY ==
[2024-01-12 11:24] VITALS: BP 110/82; PULSE 84; O2SAT 98; BMI 39.3
--- NOTE | 2024-01-12 11:24 | A.OFFPC_ITS ---
Vital Signs 01/12/24 11:24 Height 5 ft 11 in Weight 282 lb 0.3 oz BMI 39.3 BP 110/82 Blood Pressure Location Lt brachial Position Sitting Pulse 84 Pulse Source Pulse Oximeter Pulse Oximetry (%) 98 Oxygen Delivery Method Room Air Intake Visit Reasons: pe Intake Note: Patient is here today for a physical. 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 Pattern Required: No Allergies gluten Allergy (Mild, Verified 01/12/24 11:24) celiac lactose Allergy (Mild, Verified 01/12/24 11:24) unknown Medication List - Last Reconciled 01/12/24 by Winter Steele MD acetaminophen (Tylenol Extra Strength) 1,000 mg PO Q6H PRN albuterol sulfate 90 mcg/actuation 2 puffs inhalation Q4H PRN fluticasone propionate 110 mcg/actuation 2 puffs inhalation BID oxybutynin chloride ER 5 mg PO DAILY verapamil ER 120 mg PO BID Tobacco use date assessed: 01/12/24 Dental Screening Dental Screen Date: 01/12/24 Did you have a dental visit in the last 12 months?: Yes Did you have a dental problem in the last 6 months where you did not have access to dental care?: No Was dental information given to patient?: Patient has dentist HPI pe HPI Details 33-year-old obese male with a history of avascular bone necrosis with bilateral hip pain fatty liver inflammatory bowel disease hypercholesterolemia generalized anxiety disorder he did have a history of sleeve gastrectomy. Patient is here for physical exam. Hip MRI done showing abnormal signal focus of the femoral head consistent with avascular necrosis patient also follows up with cardiology December 2023 due to dizziness workup was advised with stress and echo. Patient has had also biopsy of the liver showing steatosis grade 3 and steatohepatitis stage II of for this was in November 2023. lip bite from dog- resolved. 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 phoe 120ast 39 alt 57 03/10/2024 for the palpitations - on verapamil stress test end of month has ileostomy RLQ PFSH Medical History Abdominal pain Acute ulcerative colitis POLI (acute kidney injury) Asthma BMI 35.0-35.9,adult Body mass index (BMI) of 37.0 to 37.9 in adult Crohn disease De Quervain's disease (tenosynovitis) GERD (gastroesophageal reflux disease) H/O sigmoidoscopy IBS (irritable bowel syndrome) Obesity (BMI 30-39.9) Partial obstruction of colon Portal vein thrombosis SBO (small bowel obstruction) Ulcerative colitis Surgical History Hx of colonoscopy Hx laparoscopic cholecystectomy History of ileostomy H/O total colectomy History of incision and drainage History of arthroscopy of left shoulder History of endoscopy Family History Sister Crohn's disease Father History of ulcerative colitis Sister No problems noted. Sister No problems noted. Mother Substance use disorder Mental health disorder Brother No problems noted. Brother No problems noted. Social History (Updated 01/12/24 @ 12:29 by Winter Steele MD) Housing: House Alcohol intake: current Alcohol intake frequency: holidays/special occasions only Alcohol type: hard liquor Comment: rarely not even once a year Patient Tobacco Use Status: Former Tobacco user Tobacco use type: Cigarette Years Smoked: quit high school, marijuana, tincture, no smoking e-Cigarette/Vaping Use: Never Used Second Hand Smoke Exposure: No Current occupational status: employed Cognitive needs: No Hearing needs: No Vision needs: No Questionnaire Thrive Questionnaire Date Thrive assessed: 11/29/23 I am a: Patient What is your living situation today?: I have a steady place to live Within the past 12 months, did the food you bought not last and you didn't have the money to get more?: Never true Within the past 12 months, did you worry whether your food would run out before you got money to buy more?: Never true Do you have trouble paying for medicines?: No Do you have trouble getting transportation to medical appointments?: No Do you have trouble paying your heating and electricity bill?: No Do you have trouble taking care of your child, family member or friend?: No Do you have trouble with day-to-day activities such as bathing, preparing meals, shopping, managing finances, etc.?: No Are you currently unemployed and looking for a job?: No Are you interested in more education?: No Please select the resources that you would like help with: None THRIVE Score: 0 AUDIT C Alcohol Use Questionnaire (AUDIT-C) 1. How often do you have a drink containing alcohol?: Monthly or less 2. How many drinks containing alcohol do you have on a typical day when you are drinking?: 1 or 2 3. How often do you have six or more drinks on one occasion?: Never Total Score: 1 CHERYL-7 AMB Questionnaire CHERYL-7 Date CHERYL - 7 assessed: 11/29/23 Feeling nervous, anxious, or on edge: 0 = Not at all Not being able to stop or control worryin = Not at all Worrying too much about different things: 0 = Not at all Trouble relaxin = Not at all Being so restless that it is hard to sit still: 0 = Not at all Becoming easily annoyed or irritable: 0 = Not at all Feeling afraid as if something awful might happen: 0 = Not at all Total CHERYL-7 score (0-4 normal; 5-9 mild; 10-14 moderate; 15-21 severe): 0 Source: Developed by Drs. Raymond Hein, Kanwal Coello, Dick Henning and colleagues, with an educational monroe from [employer]. Review of Systems Const Denies poor appetite and Denies weakness Eyes Denies no additional complaints ENT Reports Normal hearing present, Denies dizziness, Denies nasal congestion, Denies tinnitus and Denies sore throat Card Denies chest pain, Denies syncope, Denies rapid heart rate and Denies dyspnea Resp Denies cough and Denies dyspnea GI Denies change in stool character, Reports constipation, Denies diarrhea, Denies nausea and Denies vomiting Denies dysuria and Denies urinary frequency Neuro Reports Normal hearing present, Denies confusion, Denies dizziness, Denies syncope and Denies weakness Psych Denies confusion Physical exam (Primary Care) Vital Signs: Last Vital Signs Pulse 84 01/12/24 11:24 BP 110/82 01/12/24 11:24 Pulse Ox 98 01/12/24 11:24 Oxygen Delivery Method Room Air 01/12/24 11:24 BMI result Body Mass Index 39.3 Tobacco/Smoking Status: Tobacco use Status Tobacco use date assessed 01/12/24 01/12/24 11:25 Patient Tobacco Use Status Former Tobacco user 01/12/24 11:25 Tobacco use type Cigarette 01/12/24 11:25 e-Cigarette/Vaping Use Never Used 01/12/24 11:25 Thrive Assessment: Date of Thrive Assessment Date Thrive assessed 11/29/23 01/12/24 11:25 Const General: No confusion Orientation/consciousness: No confusion HENMT Head: Yes normocephalic Ears: external ears normal and TM's normal bilaterally Face and sinus: Yes normal facial exam Mouth: moist mucous membranes Throat: Yes tonsils normal Eyes Conjunctivae: conjunctivae normal Pupils: Equal, round and reactive pupils present and Pupil accommodation reflex normal Direct Ophthalmoscopy: normal light reflex Neck Neck: No lymphadenopathy Thyroid: Thyroid normal Chest Chest palpation & inspection: normal inspection of the chest Resp Effort & Inspection: normal respiratory effort and no audible wheezes Auscultation: clear to auscultation bilaterally, no crackles, no wheezes and lung sounds not diminished Cardio Rate: regular rate Rhythm: regular rhythm Peripheral pulses: radial pulses present and dorsalis pedis present GI Other: RLQ ielostomy Palpation (GI): no masses Auscultation: normal bowel sounds and normoactive bowel sounds Male General Exam: Yes normal external exam Skin General skin exam: no rashes or lesions noted Rashes: no rashes Neuro General: No confusion Cranial nerves: Yes Equal, round and reactive pupils present and Yes Normal hearing present Cognition (Neuro): normal cognition Gait exam (Neuro): Normal gait present Motor exam (neuro): 5/5 motor strength present throughout Deep tendon reflexes (DTR's): Right brachioradialis reflex intensity grade: 2+, Left brachioradialis reflex intensity grade: 2+, Right patellar reflex intensity grade: 2+ and Left patellar reflex intensity grade: 2+ Extrem General: No edema Assessment and Plan Assessment & Plan (1) Annual physical exam: Code(s): Z00.00 - Encounter for general adult medical examination without abnormal findings (2) Bilateral hip pain: Comment: ost colectomy with right lower quadrant ileostomy. Small parastomal hernia containing small bowel and fat. No evidence of active inflammatory disease of small bowel or rectum. Fatty liver. 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 Small umbilical hernia containing fat. Bilateral femoral head AVN. Code(s): M25.551 - Pain in right hip; M25.552 - Pain in left hip Plan: Patient follows up with orthopedics (3) Avascular bone necrosis: Code(s): M87.00 - Idiopathic aseptic necrosis of unspecified bone Plan: Patient follows up with orthopedics (4) Fatty liver: Comment: [address] biopsy done November 2023 grade 3 steatosis with steatohepatitis 2/ Code(s): K76.0 - Fatty (change of) liver, not elsewhere classified Plan: Low-fat diet and exercise need to lose weight (5) GERD (gastroesophageal reflux disease): Code(s): K21.9 - Gastro-esophageal reflux disease without esophagitis Plan: Avoid the foods that causes that usually spicy foods, tomato products, juices, coffee, soda and foods that your sensitive to. After eating do not lie down, allow 3-4 hours before in lie down. And keep the head of bed above 30 degrees to avoid the acid from going up. (6) Generalized anxiety disorder: Comment: Declined counseling February 2022 Code(s): F41.1 - Generalized anxiety disorder (7) Hypercholesterolemia: Code(s): E78.00 - Pure hypercholesterolemia, unspecified Plan: Avoid fried foods, chicken skin, eggs, butter margarine, pastries and meat. Be it pork or beef they have a lot of cholesterol LDL goal of less than 130 and triglyceride of less than 150 Coding Level of Care Code Est Pt Prev Care 18-39y(87571) Diagnoses Annual physical exam Z00.00 Bilateral hip pain M25.551; M25.552 Avascular bone necrosis M87.00 Fatty liver K76.0 GERD (gastroesophageal reflux disease) K21.9 Generalized anxiety disorder F41.1 Hypercholesterolemia E78.00
== END 2024-01-12 12:39 | disposition home or self-care (01) ==
PROVIDERS: PCP Internal Medicine; Visit Provider Internal Medicine
DX: Z00.00 Encounter for general adult medical examination without abnormal findings (principal); M25.551 Pain in right hip; M25.552 Pain in left hip; M87.00 Idiopathic aseptic necrosis of unspecified bone; K76.0 Fatty (change of) liver, not elsewhere classified; K21.9 Gastro-esophageal reflux disease without esophagitis; F41.1 Generalized anxiety disorder; E78.00 Pure hypercholesterolemia, unspecified
CPT/HCPCS: 99395

== ENCOUNTER 2024-01-19 12:47 | Outpatient (AMB) | payer BC, SELFPAY ==
--- NOTE | 2024-01-19 12:48 | A.OFFVIS_ITS ---
Intake Vital Signs 01/19/24 12:49 Height 5 ft 11 in Weight 282 lb BMI 39.3 Intake Visit Reasons: Tele-Left hip MRI review Intake Note: Alex presents today for a telehealth visit for his left hip MRI review. Allergies gluten Allergy (Mild, Verified 01/19/24 12:49) celiac lactose Allergy (Mild, Verified 01/19/24 12:49) unknown HPI HPI Comments History of Present Illness Details 33 yo male presents for telehealth MRI f /u bilat hip. [facility] Medical History Abdominal pain Acute ulcerative colitis POLI (acute kidney injury) Asthma BMI 35.0-35.9,adult Body mass index (BMI) of 37.0 to 37.9 in adult Crohn disease De Quervain's disease (tenosynovitis) GERD (gastroesophageal reflux disease) H/O sigmoidoscopy IBS (irritable bowel syndrome) Obesity (BMI 30-39.9) Partial obstruction of colon Portal vein thrombosis SBO (small bowel obstruction) Ulcerative colitis Surgical History Hx of colonoscopy Hx laparoscopic cholecystectomy History of ileostomy H/O total colectomy History of incision and drainage History of arthroscopy of left shoulder History of endoscopy Family History Sister Crohn's disease Father History of ulcerative colitis Sister No problems noted. Sister No problems noted. Mother Substance use disorder Mental health disorder Brother No problems noted. Brother No problems noted. Social History Housing: House Alcohol intake: current Alcohol intake frequency: holidays/special occasions only Alcohol type: hard liquor Comment: rarely not even once a year Patient Tobacco Use Status: Former Tobacco user Tobacco use type: Cigarette Years Smoked: quit high school, marijuana, tincture, no smoking e-Cigarette/Vaping Use: Never Used Second Hand Smoke Exposure: No Current occupational status: employed Cognitive needs: No Hearing needs: No Vision needs: No Physical Exam Vital Signs: BMI result Body Mass Index 39.3 Resp Effort & Inspection: normal respiratory effort and able to speak in complete sentences Results Reviewed Results Reviewed: MRi rt hip IMPRESSION: 1. Focus of abnormal signal in the femoral head measuring approximately 1.7 x 2.2 cm, consistent with a focus of avascular necrosis. This correlates with the finding seen on the prior CT. No evidence of subchondral collapse. 2. Mild distal gluteus minimus and medius tendinosis. MR hip LT wo con IMPRESSION: 1. Abnormal signal focus in the femoral head measuring 2.7 x 1.7 cm. Findings correlate with the prior CT findings, and consistent with a focus of avascular necrosis. No evidence of subchondral collapse. 2. No labral tear is seen. Assessment & Plan Assessment & Plan (1) Avascular necrosis of bones of both hips: Code(s): M87.051 - Idiopathic aseptic necrosis of right femur; M87.052 - Idiopathic as eptic necrosis of left femur Plan We discussed the findings on the MRI. I explained at this time we will continue with conservative management as there is no evidence of femoral head collapse. He will continue activities as tolerated and if symptoms worsen he will contact our office, otherwise, f/u in 1 year for repeat MRI. Telehealth Telehealth Location of provider rendering services: practice address Location of patient: address on file Patient Identification confirmed using: Name, : Yes Telehealth method: voice only Patient verbally consented to treatment: Yes Patient verbally consented to billing insurance company: Yes Patient informed of any privacy concerns related to visit: Yes Minutes spent on Phone/Video with Pt.: 15 Coding Level of Care Code Tele Est Pt Level 3 (62702) Diagnoses Avascular necrosis of bones of both hips M87.051; M87.052
[2024-01-19 12:49] VITALS: BMI 39.3
== END 2024-01-19 12:50 | disposition home or self-care (01) ==
LOC: HO.HOS 12:47
PROVIDERS: PCP Internal Medicine; Visit Provider Physician Assistant
DX: M87.051 Idiopathic aseptic necrosis of right femur (principal); M87.052 Idiopathic aseptic necrosis of left femur
CPT/HCPCS: 99442

== ENCOUNTER → 2024-01-19 12:47 | Outpatient (BNVA) | payer BC, SELFPAY | PROVIDERS: PCP Internal Medicine; Visit Provider Physician Assistant ==

== ENCOUNTER 2024-02-16 10:50 | Outpatient (REF) | payer BC, SELFPAY ==
[2024-02-16 11:10] LABS: MANUAL DIFF FLAG NO
[2024-02-16 12:20] LABS: Basophils Absolute Auto 0.1 X10*3/uL (0.0-0.2); Basophils Percent Auto 0.5 % (0-2); Eosinophils Absolute Auto 0.2 X10*3/uL (0.0-0.4); Eosinophils Percent Auto 2.1 % (0-4); Hematocrit 45.1 % (42.0-52.0); Hemoglobin 15.8 g/dl (14.0-18.0); Imm Gran Abs Auto 0.02 X10*3/uL (0.00-0.03); Imm Gran Pct Auto 0.2 % (0.0-0.4); Lymphocytes Absolute Auto 2.3 X10*3/uL (1.2-4.9); Lymphocytes Percent Auto 24.5 % (20-40); Mean Corpuscular Hemoglobin 30.9 pg (27.0-33.0); Mean Corpuscular Volume 88.3 fL (80.0-98.0); Mean Platelet Volume 11.3 fL (9.4-12.4); Monocytes Absolute Auto 0.6 X10*3/uL (0.1-1.2); Monocytes Percent Auto 6.6 % (2-11); Neutrophils Absolute Auto 6.1 x10*3/uL (2.0-8.3); Neutrophils Percent Auto 66.1 % (45-73); Platelet Count 249 X10*3/uL (160-400); Red Blood Count 5.11 X10*6/uL (4.60-5.80); Red Cell Distribution Width 12.8 % (11.0-16.0); White Blood Count 9.2 X10*3/uL (4.8-10.8)
[2024-02-16 12:52] LABS: B Type Natriuretic Peptide < 10 pg/mL (<100)
[2024-02-16 13:01] LABS: Alanine Aminotransferase 45 U/L (0-40); Anion Gap 14 (12-20); Aspartate Amino Transferase 29 U/L (5-37); Blood Urea Nitrogen 13 mg/dL (9-16); Calcium 10.1 mg/dL (8.4-10.2); Carbon Dioxide 26 mmol/L (22-29); Chloride 105 mmol/L (96-108); Cholesterol 215 mg/dL (<200); Estimated Glomerular Filt Rate > 60; Glucose Random 91 mg/dL (60-115); HDL Cholesterol 45 mg/dL (>40); LDL Cholesterol Calculated 139 mg/dL (<100); Potassium 3.8 mmol/L (3.3-5.1); Sodium 141 mmol/L (135-145); Triglycerides 158 mg/dL (<150)
== END 2024-02-16 10:51 | disposition home or self-care (01) ==
LOC: HO.LAB 10:50
PROVIDERS: Internal Medicine Cardiovascular Disease; PCP Internal Medicine; Visit Provider Internal Medicine
DX: R07.9 Chest pain, unspecified (principal); R00.2 Palpitations
CPT/HCPCS: 36415; 80048; 80061; 83880; 84450; 84460; 85025

== ENCOUNTER 2024-10-02 09:54 | Outpatient (AMB) | payer BC, SELFPAY ==
[2024-10-02 10:04] VITALS: BP 124/80; PULSE 86; O2SAT 98; BMI 35.7
--- NOTE | 2024-10-02 10:04 | A.OFFPC_ITS ---
Vital Signs 10/02/24 10:04 Height 5 ft 11 in Weight 256 lb BMI 35.7 BP 124/80 Blood Pressure Location Lt brachial Position Sitting Pulse 86 Pulse Source Pulse Oximeter Pulse Oximetry (%) 98 Oxygen Delivery Method Room Air Intake Visit Reasons: 8 months f/u Allergies gluten Allergy (Mild, Verified 10/02/24 10:04) celiac lactose Allergy (Mild, Verified 10/02/24 10:04) unknown Tobacco use date assessed: 01/12/24 Dental Screening Dental Screen Date: 01/12/24 HPI 8 months f/u HPI Details 33-year-old obese male(noted 26 lb weigh t loss) with a history of avascular necrosis with hip pain fatty liver GERD generalized anxiety disorder hypercholesterolemia last seen for physical exam in January 2024. Review of the notes ER visit in July for atypical chest pain patient on verapamil 120 mg twice a day received also note from Cardiology for the palpitations gastric sleeve surgery. Patient has history of Crohn's disease(with ileostomy) asthma. Noted ER visit also in March anxiety does smoke marijuana he also has had a history of suicidal attempt. With medication overdose. Orthopedics note January for the avascular necrosis of both hips conservative management with no evidence of femoral head collapse. chest pain more musculoskeletal. seeing psychiatrist regularly ileostomy leaking , DR. Jerry and [place] and will ff . bilateral hip PFSH Medical History (Updated 10/02/24 @ 10:40 by Winter Steele MD) Bilateral hip pain Avascular bone necrosis H/O sigmoidoscopy SBO (small bowel obstruction) Partial obstruction of colon Crohn disease Acute ulcerative colitis POLI (acute kidney injury) Abdominal pain Asthma Portal vein thrombosis BMI 35.0-35.9,adult Obesity (BMI 30-39.9) Body mass index (BMI) of 37.0 to 37.9 in adult De Quervain's disease (tenosynovitis) Ulcerative colitis IBS (irritable bowel syndrome) GERD (gastroesophageal reflux disease) Surgical History Hx of colonoscopy Hx laparoscopic cholecystectomy History of ileostomy H/O total colectomy History of incision and drainage History of arthroscopy of left shoulder History of endoscopy Family History Sister Crohn's disease Father History of ulcerative colitis Sister No problems noted. Sister No problems noted. Mother Substance use disorder Mental health disorder Brother No problems noted. Brother No problems noted. Social History Housing: House Alcohol intake: current Alcohol intake frequency: holidays/special occasions only Alcohol type: hard liquor Comment: rarely not even once a year Patient Tobacco Use Status: Former Tobacco user Tobacco use type: Cigarette Years Smoked: quit high school, marijuana, tincture, no smoking e-Cigarette/Vaping Use: Never Used Second Hand Smoke Exposure: No Current occupational status: employed Cognitive needs: No Hearing needs: No Vision needs: No Questionnaire PHQ-9 Over the last 2 weeks, how often have you been bothered by any of the following problems? 1. Little interest or pleasure in doing things: not at all 2. Feeling down, depressed, or hopeless: not at all 3. Trouble falling or staying asleep, or sleeping too much: not at all 4. Feeling tired or having little energy: not at all 5. Poor appetite or overeating: not at all 6. Feeling bad about yourself - or that you are a failure or have let yourself or your family down: not at all 7. Trouble concentrating on things, such as reading the newspaper or watching television: not at all 8. Moving or speaking so slowly that other people could have noticed. Or the opposite - being so fidgety or restless that you have been moving around a lot more than usual: not at all 9. Thoughts that you would be better off or of hurting yourself in some way: not at all Total score: 0 Depression Screening Interpretation: Negative Depression Screening Done: Yes Source: Developed by Drs. Raymond Hein, Kanawl Coello, Dick Henning and colleagues, with an educational monroe from [employer]. Thrive Questionnaire Date Thrive assessed: 11/29/23 AUDIT C Alcohol Use Questionnaire (AUDIT-C) 1. How often do you have a drink containing alcohol?: Monthly or less 2. How many drinks containing alcohol do you have on a typical day when you are drinking?: 1 or 2 3. How often do you have six or more drinks on one occasion?: Never Total Score: 1 CHERYL-7 AMB Questionnaire CHERYL-7 Date CHERYL - 7 assessed: 11/29/23 Source: Developed by Drs. Raymond Hein, Kanwal Coello, Dick Henning and colleagues, with an educational monroe from [employer]. Physical exam (Primary Care) Vital Signs: Last Vital Signs Pulse 86 10/02/24 10:04 BP 124/80 10/02/24 10:04 Pulse Ox 98 10/02/24 10:04 Oxygen Delivery Method Room Air 10/02/24 10:04 BMI result Body Mass Index 35.7 Tobacco/Smoking Status: Tobacco use Status Tobacco use date assessed 01/12/24 10/02/24 10:05 Patient Tobacco Use Status Former Tobacco user 10/02/24 10:05 Tobacco use type Cigarette 10/02/24 10:05 e-Cigarette/Vaping Use Never Used 10/02/24 10:05 PHQ-9: PHQ-9 Score PHQ-9: Total score 0 10/02/24 10:23 Depression Screening Interpretation: Negative Thrive Assessment: Date of Thrive Assessment Date Thrive assessed 11/29/23 10/02/24 10:05 Const General: alert; No acute distress Eyes Conjunctivae: conjunctivae normal Resp Auscultation: clear to auscultation bilaterally Cardio Rate: regular rate Rhythm: regular rhythm GI Inspection: Yes normal to inspection Extrem General: Yes normal to inspection and No edema Coding Level of Care Code Est Pt Level 4 (35595) Complex EM visit Add On G2211 Diagnoses Avascular necrosis of bones of both hips M87.051; M87.052 History of sleeve gastrectomy Z90.3 Palpitations R00.2 Fatty liver K76.[address] Z93.2 Mild intermittent asthma without complication J45.20 Asthma severity: mild Asthma persistence: intermittent Asthma complication type: uncomplicated Gastroesophageal reflux disease without esophagitis K21.9 Esophagitis presence: without esophagitis Major depression F32.9 Assessment & Plan Assessment & Plan (1) Avascular necrosis of bones of both hips: Code(s): M87.051 - Idiopathic aseptic necrosis of right femur; M87.052 - Idiopathic aseptic necrosis of left femur Category: Medical Plan: Patient has seen Orthopedics and conservative management continue with present activity (2) History of sleeve gastrectomy: Comment: November 15/2024 Code(s): Z90.3 - Acquired absence of stomach [part of] Category: Surgical Plan: Continue with diet and exercise and continue to follow-up with bariatric surgeon (3) Palpitations: Code(s): R00.2 - Palpitations Category: Medical Plan: Patient has followed up with Cardiology stable on verapamil 120 mg twice a day (4) Fatty liver: Comment: [address] biopsy done November 2023 grade 3 steatosis with steatohepatitis / Code(s): K76.0 - Fatty (change of) liver, not elsewhere classified Category: Medical Plan: Low-fat diet and exercise (5) Ileostomy in place: Comment: October 2020 Crohn's disease Code(s): Z93.2 - Ileostomy status Category: Medical Plan: Stable (6) Asthma: Code(s): J45.909 - Unspecified asthma, uncomplicated Category: Medical Qualifiers: Asthma severity: mild Asthma persistence: intermittent Asthma complication type: uncomplicated Qualified Code(s): J45.20 - Mild intermittent asthma, uncomplicated Plan: Stable continue with the inhalers as needed (7) GERD (gastroesophageal reflux disease): Code(s): K21.9 - Gastro-esophageal reflux disease without esophagitis Category: Medical Qualifiers: Esophagitis presence: without esophagitis Qualified Code(s): K21.9 - Gastro-esophageal reflux disease without esophagitis Plan: Avoid the foods that causes that usually spicy foods, tomato products, juices, coffee, soda and foods that your sensitive to. After eating do not lie down, allow 3-4 hours before in lie down. And keep the head of bed above 30 degrees to avoid the acid from going up. (8) Major depression: Code(s): F32.9 - Major depressive disorder, single episode, unspecified Category: Medical Plan: Continue with fluoxetine , mirtazapine and clonazepam
== END 2024-10-02 10:50 | disposition home or self-care (01) ==
PROVIDERS: PCP Internal Medicine; Visit Provider Internal Medicine
DX: M87.051 Idiopathic aseptic necrosis of right femur (principal); M87.052 Idiopathic aseptic necrosis of left femur; Z93.2 Ileostomy status; Z90.3 Acquired absence of stomach [part of]; R00.2 Palpitations; K76.0 Fatty (change of) liver, not elsewhere classified; J45.20 Mild intermittent asthma, uncomplicated; K21.9 Gastro-esophageal reflux disease without esophagitis; F32.9 Major depressive disorder, single episode, unspecified

== ENCOUNTER 2024-10-11 10:03 | Outpatient (REF) | payer BC, SELFPAY ==
--- OUTSIDE RECORDS SUMMARY | 2024-10-16 14:20 | XMS_ITS | Data Portability ---
Author Organization [facility], [address] Address [address] [place] [address] Care Team Providers Care Reiki Practitioner Name Role Phone JOSE GABBYTORRIE Primary Care Provider [phone] Assessment No assessment recorded. Plan of Treatment Reminders Order Date Submit Date Provider Last Modified By Organization Details Last Modified Time Details Appointments None recorded. Lab rapid strep group A, throat 2021 [facility], [address] [place] [address], [id number], 12:37:00 rapid SARS CoV 2 Ag, QL IA, respiratory specimen 2021 [facility], [address] [place] [address], [id number], 12:37:00 Referral None recorded. Procedures None recorded. Surgeries None recorded. Imaging None recorded. Medication Orders azithromyci n 250 mg tablet 2021 [id number], [address] [place], [place], [phone], 12:37:14 Patient TargetsNo targets recorded. Patient Instructions Encounter Date Encounter Id Patient Instructions Last Modified By Organization Details Last Modified Time 11/04/2022 [id number] sore throat: car e instructions Not available 11/04/2022 12:37:00 Acute Sinusitis: Care Instructions Not available 11/04/2022 12:37:00 Increase fluids Take over the counter cold remedies as needed. If you have high blood pressure, diabetes, or thyroid disease, avoid cold medicine with decongestants - May take Coricidin. Get plenty of rest. Return to clinic if worsens, becomes more concerning or as needed. Go to Emergency Room if you feel you have a life threatening condition. Not available 11/04/2022 12:36:58 Reason for Referral None Reported. Results Created Date Observation Date Name Description Value Unit Range Abnormal Flag Note LastModifiedBy Organization Detail LastModifiedTime 11/04/20 22 11/04/2022 rapid SARS CoV 2 Ag, QL IA, respi rator y speci men Unknown Analyte Normal =Negat [place] Not Available [address] [place] [address], [phone], 11/04/2022 11:50:21 11/04/20 22 11/04/2022 rapid SARS CoV 2 Ag, QL IA, respi rator y speci men Unknown Analyte negati ve Not Available [address] [place] [address], [id number], 11/04/2022 11:50:21 11/04/20 22 11/04/2022 rapid strep group A, throa t Unknown Analyte Normal = Negati ve Not Available [address] [place] [address], [id number], 11/04/2022 11:27:18 11/04/20 22 11/04/2022 rapid strep group A, throa t Unknown Analyte negati ve Not Available [address] [place] [address], [id number], 11/04/2022 11:27:18 Result Notes None recorded. Problems Name Problem SNOMED Code Status Onset Date Resolution Date Notes Provider Name and Address Organization Details Recorded Time Gastroesophage al reflux disease 236172372 Active 2021 JCARLOS Palacios - [facility] 11:30:50 Hypertensive disorder 41979806 Active 2021 WAYNE VALDEZ null, PA - [facility] 2 11:30:59 Asthma 050693482 Active 2021 WAYNE VALDEZ null, PA - [facility] 2 11:31:06 Right colectomy Active 2021 WAYNE COURTNEY null, PA - [facility] 2 11:31:21 Chronic colitis 88527139 Active 2021 WAYNE VALDEZ null, PA - [facility] 2 11:34:25 Problem Notes None recorded. Procedures Surgical History Date Name Laterality Status Provider Name and Address Organization Details Recorded Time right colectomy completed WAYNE VALDEZ PA - [facility] 11/04/2022 11:33:26 ileostomy operation completed WAYNE VALDEZ PA - [facility] 11/04/2022 11:33:46 Imaging Results None recorded. Procedure Notes None recorded. Medical Equipment None Reported. Allergies No known drug allergies Medications Name Sig Start Date Stop Date Status Note LastModified by Organization Details LastModified Time verapamil ER (SR) 120 mg tablet,exte nded release TAKE 1 TABLET BY MOUTH EVERY DAY active Not Available Not Available No t Available azithromyci n 250 mg tablet TAKE 2 TABLETS BY MOUTH ONCE DAILY FOR 1 DAY THEN 1 TABLET ONCE DAILY FOR 4 DAYS active Not Available Not Available No t Available pantoprazol e 40 mg tablet,ruben yed release TAKE 1 TABLET BY MOUTH DAILY active Not Available Not Available No t Available erythromyci n 5 mg/gram (0.5 %) eye ointment INSTILL 0.5 INCH OF OINTMENT 4 TIMES DAILY NEEDED FOR 5 DAYS TO AFFECTED EYE(S) 11/04 completed Not Available Not Available Not Available albuterol sulfate HFA 90 mcg/actuati on aerosol inhaler INHALE 2 PUFFS BY MOUTH EVERY 4 HOURS NEEDED FOR BRONCHOSP ASM active Not Available Not Available No t Available naproxen 500 mg tablet TAKE 1 TABLET BY MOUTH TWICE DAILY NEEDED FOR PAIN 11/04 completed Not Available Not Available Not Available tobramycin 0.3 %-dexametha sone 0.1 % eye drops,suspe nsion INSTILL 1 DROP INTO AFFECTED EYE(S) EVERY 6 HOURS FOR 10 DAYS 11/04 completed Not Available Not Available Not Available Flovent HFA 44 mcg/actuati on aerosol inhaler INHALE 1 PUFF BY MOUTH TWICE DAILY active Not Available Not Available No t Available Vitals Date Recorded Body height Body mass index (BMI) Body weight Oxygen saturation Oxygen saturation in Arterial blood by Pulse oximetry Heart rate Respiratory rate Body temperature Systolic blood pressure Diastolic blood pressure Provider Name and Address Organization Details Last Updated DateTime 2 182.88 cm 42 kg/m2 816690. 63 g 99 % 99 % 70 /min 18 /min 98.2 [degF] 138 mm[Hg] 91 mm[Hg] WAYNE VALDEZ PA - [facility] 11:35:49 Social History Question Answer Notes LastModified by Organizat ion Details LastModified Time Tobacco Smoking Status Never Smoker WAYNE beltran PA - [facility] 11/04/2022 11:33:02 What Is Your Level Of Alcohol Consumption? None Information not available 11/04/2022 Are You Currently Employed? Yes Information not available 11/04/2022 Do You Use Any Illicit Or Recreational Drugs? No Information not available 11/04/2022 Have You Recently Traveled Abroad? No Information not available 11/04/2022 Do You Or Have You Ever Used Any Other Forms Of Tobacco Or Nicotine? No Information not available 11/04/2022 Sex: Unknown Functional Status None recorded. Mental Status None recorded. Family History Relationship Description Onset Age of this Age Resolved Age Notes LastModified by Organization Details LastModified Time Father No current problems or disability Not available 11/04 11:32:06 Father Colitis Not available 11/04/2022 11:32:32 Mother No current problems or disability Not available 11/04 11:32:06 Mother Asthma Not available 11/04/2022 11:32:40 Medical History No medical history recorded. Immunizations Vaccine Type Date Status Note Provider Nam e and Address Organization Details Recorded Time COVID-19, mRNA, LNP-S, PF, 100 mcg/0.5mL dose or 50 mcg/0.25mL dose 02/21/2022 completed JCARLOS Palacios - [facility] 11/04/2022 11:29:39 COVID-19, mRNA, LNP-S, PF, 100 mcg/0.5mL dose or 50 mcg/0.25mL dose 03/21/2022 completed WAYNE beltran PA - [facility] 11/04/2022 11:29:39 Past Encounters Encounter ID Performer Location Encounter Start Date Encounter Closed Date Diagnosis/Indication Diagnosis SNOMED-CT Code Diagnosis ICD10 Code [id number] [facility] Deal [address] [address] 11/04/2022 08:48:39 11/04/2022 12:47:05 Acute sinusitis 31758972 J01.90 Health Concerns Section Related Observation LastModified by Organization Detai ls LastModified Time None Recorded Concern Status LastModified by Organization Details LastModified Time None Recorded Advance Directives Directive None Recorded Payers Encounter Date Sequence Insurance Name Policy Number Policy Bowen Covered Member ID Bowen Member ID Guarantor Name 11/04/2022 1 [facility] [id number] Alexflora Morales [id number] Alex Dyer Notes Date Note Type Note Provider Name and Address Organization Details Recorded Time 2 text/html Sore throatReported bypatient.Source of patient informationInformation obtained from patient; Patient arrived at Urgent Care ambulatory Location:throat Severity:moderate Onset/Timin months JCARLOS Deal [facility] [place], [address], PA - [facility] 11/04/2022 12:37:45
== END 2024-10-11 10:04 | disposition home or self-care (01) ==
LOC: HO.HOSX 10:03
PROVIDERS: Visit Provider Physician Assistant
DX: M25.552 Pain in left hip (principal)
CPT/HCPCS: 73502

== ENCOUNTER 2024-10-11 14:21 | Outpatient (AMB) | payer BC, SELFPAY ==
--- NOTE | 2024-10-11 14:23 | A.OFFVIS_ITS ---
Vital Signs 10/11/24 14:24 Height 5 ft 11 in Weight 256 lb BMI 35.7 Intake Visit Reasons: OV- Left Hip Pain Intake Note: Alex is a 32 year old male who presents today for a follow up visit for bilateral hip pain. No previous tx. 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 Patient reports he fell 3 times last week and once this week. He was seen by his PCP, who referred him to follow up with orthopedics. His pain is causing discomfort in his testicles, stating it feels like they are being squeezed. He is starting to now have discomfort in his right hip. Celebrex no longer provides him with relief. Allergies gluten Allergy (Mild, Verified 10/11/24 14:43) celiac lactose Allergy (Mild, Verified 10/11/24 14:43) unknown Medication List - Last Reconciled 10/13/24 by Kinjal Bejarano PA-C albuterol sulfate 90 mcg/actuation 2 puffs inhalation Q4H PRN celecoxib (Celebrex) 200 mg PO BID 30 days clonazepam 0.5 mg PO DAILY fluoxetine 20 mg PO DAILY PRN fluticasone propionate 110 mcg/actuation 2 puffs inhalation BID mirtazapine 30 mg PO BEDTIME verapamil ER 120 mg PO BID HPI HPI OV- Left Hip Pain: Details: 33-year-old male who returns to the office today for a follow-up of left hip pain. He reports he had 3 falls last week and once this week. He was seen by his PCP who referred him to our office. He currently states he has pain in his bilateral hips that is worse on his left hip. He also experiences discomfort in his testicles that feels like they are being squeezed. He no longer finds relief with Celebrex. He has not had any treatment in the past. He has been recently diagnosed of AVN in bilateral hips. He has a history of Chron?s disease and was on 30-40 mg of prednisone. [facility] Medical History (Updated 10/02/24 @ 10:40 by Winter Steele MD) Bilateral hip pain Avascular bone necrosis H/O sigmoidoscopy SBO (small bowel obstruction) Partial obstruction of colon Crohn disease Acute ulcerative colitis POLI (acute kidney injury) Abdominal pain Asthma Portal vein thrombosis BMI 35.0-35.9,adult Obesity (BMI 30-39.9) Body mass index (BMI) of 37.0 to 37.9 in adult De Quervain's disease (tenosynovitis) Ulcerative colitis IBS (irritable bowel syndrome) GERD (gastroesophageal reflux disease) Surgical History Hx of colonoscopy Hx laparoscopic cholecystectomy History of ileostomy H/O total colectomy History of incision and drainage History of arthroscopy of left shoulder History of endoscopy Family History Sister Crohn's disease Father History of ulcerative colitis Sister No problems noted. Sister No problems noted. Mother Substance use disorder Mental health disorder Brother No problems noted. Brother No problems noted. Social History Housing: House Alcohol intake: current Alcohol intake frequency: holidays/special occasions only Alcohol type: hard liquor Comment: rarely not even once a year Patient Tobacco Use Status: Former Tobacco user Tobacco use type: Cigarette Years Smoked: quit high school, marijuana, tincture, no smoking e-Cigarette/Vaping Use: Never Used Second Hand Smoke Exposure: No Current occupational status: employed Cognitive needs: No Hearing needs: No Vision needs: No Review of Systems Const All systems reviewed & are unremarkable except as noted in HPI and below Physical Exam Vital Signs: BMI result Body Mass Index 35.7 Const General: cooperative, healthy appearing, comfortable, no acute distress, well developed and alert Orientation/consciousness: patient oriented x3 HEENT Head: Yes normal to inspection, Yes normocephalic and Yes atraumatic Eyes General: appearance normal, both eyes and all related structures Resp Effort & Inspection: normal respiratory effort and able to speak in complete sentences Cardio Rate: regular rate Peripheral pulses: Peripheral pulses 2+ throughout GI Palpation (GI): Soft to palpation Skin Lesions: no lesions Rashes: no rashes Neuro General: patient oriented x3 Extrem Other: Bilat hip :discomfort with rom of the hip, no pain with / abd/add of the hip. Results Reviewed Results Reviewed: Xrays were obtained in the office today and personally reviewed by me of bilat hip are negative for femoral head collapse Assessment & Plan Assessment & Plan (1) Avascular necrosis of bones of both hips: Code(s): M87.051 - Idiopathic aseptic necrosis of right femur; M87.052 - Idiopathic aseptic necrosis of left femur Category: Medical Plan I did send him for a repeat MRI of his bilateral hips to monitor AVN to determine next step in treatment. Orders: Orders MR hip LT wo con 10/11/24 M87.051 - Idiopathic aseptic necrosis of right femur, M87.052 - Idiopathic aseptic necrosis of left femur XR hip LT min 2V 10/11/24 M25.552 - Pain in left hip MR hip RT wo con 10/11/24 M87.051 - Idiopathic aseptic necrosis of right femur, M87.052 - Idiopathic aseptic necrosis of left femur Patient Instructions: Scribed for Kinjal Bejarano PA-C, by Paul Amos medical lab tech instructor, on 10/11/2024 at 2:45 PM EST.? I, Kinjal Bejarano PA-C, have personally reviewed and agree with the information entered by the scribe. Coding Level of Care Code Est Pt Level 3 (16980) Complex EM visit Add On G2211 Diagnoses Avascular necrosis of bones of both hips M87.051; M87.052
[2024-10-11 14:24] VITALS: BMI 35.7
== END 2024-10-11 15:04 | disposition home or self-care (01) ==
PROVIDERS: PCP Internal Medicine; Visit Provider Physician Assistant
DX: M87.051 Idiopathic aseptic necrosis of right femur (principal); M87.052 Idiopathic aseptic necrosis of left femur
CPT/HCPCS: 99213

== ENCOUNTER → 2024-11-07 17:44 | Outpatient (BNV) | payer BC, SELFPAY | PROVIDERS: PCP Internal Medicine; Visit Provider Specialist | DX: M87.051 Idiopathic aseptic necrosis of right femur (principal); M87.052 Idiopathic aseptic necrosis of left femur | CPT/HCPCS: 73721 ==

== ENCOUNTER 2024-11-07 17:59 | Outpatient (REF) | payer BC, SELFPAY ==
--- NOTE | ~2024-11-07 | MR_ITS ---
CLINICAL HISTORY: M87.051 - Idiopathic aseptic necrosis of right femur MR left hip without gadolinium Comparison: 10/11/2024 Findings: No acute fracture or pathologic bone lesion. No femoral neck bony protuberances. Normal acetabular version. No joint effusion. Acetabular labrum intact. No tendon or muscle abnormalities. IMPRESSION: Unremarkable hip MRI. This document has been electronically signed by: Helio Aviles MD on 11/08/2024 18:52:23
--- NOTE | ~2024-11-07 | MR_ITS ---
CLINICAL HISTORY: M87.051 - Idiopathic aseptic necrosis of right femur MR right hip without gadolinium Comparison: 01/03/2024 Findings: No fractures. No pathologic bone lesions. No femoral neck bony protuberances. Normal acetabular version. No effusion. Acetabular labrum intact. Musculotendinous structures are intact. IMPRESSION: Unremarkable hip MRI. This document has been electronically signed by: Helio Aviles MD on 11/08/2024 18:01:51
== END 2024-11-07 18:00 | disposition home or self-care (01) ==
LOC: HO.MRI 17:59
PROVIDERS: PCP Internal Medicine; Visit Provider Physician Assistant
DX: M87.051 Idiopathic aseptic necrosis of right femur (principal); M87.052 Idiopathic aseptic necrosis of left femur
CPT/HCPCS: 73721

== ENCOUNTER → 2024-12-02 14:53 | Outpatient (BNVA) | payer BC, SELFPAY | PROVIDERS: PCP Internal Medicine; Visit Provider Physician Assistant ==

== ENCOUNTER 2024-12-24 19:19 | Emergency (ER) | payer BC, SELFPAY ==
--- NOTE | ~2024-12-24 | XR_ITS ---
CLINICAL HISTORY: AP, ?constipation, has ostomy 1 view abdomen Comparison: X-rays of the pelvis from 10/11/2024 Findings: No small bowel dilatation. Paucity of bowel gas in the imaged abdomen. Opacity from right-sided ostomy. No consolidation of the imaged lung bases. No significant change in sclerosis, including right hip. Phleboliths are redemonstrated in the pelvis. IMPRESSION: No small bowel obstruction. This document has been electronically signed by: Reji Chambers MD on 12/24/2024 20:42:25
[2024-12-24 20:18] VITALS: BP 135/82; PULSE 113; RESP 18; TEMP 36.7; O2SAT 99; BMI 32.2
--- NOTE | 2024-12-24 20:18 | ED_ITS ---
HPI - Nausea/Vomiting/Diarrhea General Chief complaint: Nausea/Vomiting/Diarrhea Stated complaint: Nauseas/Vomiting/?Constipated Related Data Home Medications ?Medication ?Instructions ?Recorded ?Confirmed verapamil 120 mg tablet,extended 120 mg PO BID 02/09/23 10/13/24 release clonazepam 0.5 mg tablet 0.5 mg PO DAILY 10/02/24 10/13/24 fluoxetine 20 mg capsule 20 mg PO DAILY PRN 10/02/24 10/13/24 mirtazapine 30 mg tablet 30 mg PO BEDTIME 10/02/24 10/13/24 Previous Rx's ?Medication ?Instructions ?Recorded fluticasone propionate 110 2 puff inhalation BID #12 grams 02/09/23 mcg/actuation HFA aerosol inhaler albuterol sulfate 90 mcg/actuation 2 puff inhalation Q4H PRN 08/21/23 aerosol inhaler bronchospasm #8.5 grams celecoxib 200 mg capsule (Celebrex) 200 mg PO BID 30 days #60 caps 01/29/24 Allergies Allergy/AdvReac Type Severity Reaction Status Date / Time gluten Allergy Mild celiac Verified 12/24/24 20:20 lactose Allergy Mild unknown Verified 12/24/24 20:20 [facility] Past Medical History Medical History (Updated 12/25/24 @ 11:00 by JCARLOS Johnson) Bilateral hip pain Avascular bone necrosis H/O sigmoidoscopy SBO (small bowel obstruction) Partial obstruction of colon Crohn disease Acute ulcerative colitis POLI (acute kidney injury) Abdominal pain Asthma Portal vein thrombosis BMI 35.0-35.9,adult Obesity (BMI 30-39.9) Body mass index (BMI) of 37.0 to 37.9 in adult De Quervain's disease (tenosynovitis) Ulcerative colitis IBS (irritable bowel syndrome) GERD (gastroesophageal reflux disease) Surgical History Hx of colonoscopy Hx laparoscopic cholecystectomy History of ileostomy H/O total colectomy History of incision and drainage History of arthroscopy of left shoulder History of endoscopy Family History Family History Sister Crohn's disease Father History of ulcerative colitis Sister No problems noted. Sister No problems noted. Mother Substance use disorder Mental health disorder Brother No problems noted. Brother No problems noted. Social History Social History Housing: House Alcohol intake: current Alcohol intake frequency: holidays/special occasions only Alcohol type: hard liquor Comment: rarely not even once a year Patient Tobacco Use Status: Former Tobacco user Tobacco use type: Cigarette Years Smoked: quit high school, marijuana, tincture, no smoking e-Cigarette/Vaping Use: Never Used Second Hand Smoke Exposure: No Advance Directives: No Advance Directives Information Provided: No Current occupational status: employed Cognitive needs: No Hearing needs: No Vision needs: No Physical Exam 2 Vital Signs: Vital Signs: Last Vital Signs Temp 98.1 F 12/24/24 20:18 Pulse 113 H 12/24/24 20:18 Resp 18 12/24/24 20:18 BP 135/82 12/24/24 20:18 Pulse Ox 99 12/24/24 20:18 O2 Del Method Room Air 12/24/24 20:18 BMI result Body Mass Index 32.2 Course Course Course Narrative: This is an RME: Additional HPI, ROS, PE not included below will be deferred to primary provider. RME assessment and note performed by: Aydee Rangel PA-C 33-year-old male(noted 26 lb weight loss) with a history of crohns and colitis with ostomy, avascular necrosis with hip pain fatty liver GERD generalized anxiety disorder hypercholesterolemia presents emergency department with complaints of abdominal pain, abdominal pain, vomiting. States that his ostomy is liquid. He feels as though he is constipated. No fevers. Plan: Labs, EKG, patient medicated with Zofran Reevaluation(s) Reevaluation #1: Patient left without completing treatment. Medical Decision Making Lab Data 12/24/24 20:58 12/24/24 20:58 Labs: Lab Results 12/24/24 Range/Units 20:58 WBC 8.4 (4.8-10.8) X10*3/uL RBC 4.86 (4.60-5.80) X10*6/uL Hgb 15.4 (14.0-18.0) g/dl Hct 43.3 (42.0-52.0) % MCV 89.1 (80.0-98.0) fL MCH 31.7 (27.0-33.0) pg MCHC 35.6 (31.0-36.0) g/dl RDW 13.0 (11.0-16.0) % Plt Count 234 (160-400) X10*3/uL MPV 10.7 (9.4-12.4) fL Immature Gran % (Auto) 0.2 (0.0-0.4) % Neut % (Auto) 64.2 (45-73) % Lymph % (Auto) 23.5 (20-40) % [place] % (Auto) 8.6 (2-11) % Eos % (Auto) 3.0 (0-4) % Baso % (Auto) 0.5 (0-2) % Lymph # (Auto) 2.0 (1.2-4.9) X10*3/uL [place] # (Auto) 0.7 (0.1-1.2) X10*3/uL Eos # (Auto) 0.3 (0.0-0.4) X10*3/uL Baso # (Auto) 0.0 (0.0-0.2) X10*3/uL Abs Immat Gran (auto) 0.02 (0.00-0.03) X10*3/uL Absolute Neuts (auto) 5.4 (2.0-8.3) x10*3/uL Absolute Nucleated RBC 0.000 (0.0-0.012) X10*3/uL Nucleated RBC % (auto) 0.0 (0.0-0.2) /100WBC Sodium 141 (135-145) mmol/L Potassium 4.0 (3.3-5.1) mmol/L Chloride 108 (96-108) mmol/L Carbon Dioxide 22 (22-29) mmol/L Anion Gap 15 (12-20) BUN 19 H (9-16) mg/dL Creatinine 1.09 (0.5-1.4) mg/dL Estim Creat Clear Calc 124.5 Estimated GFR > 60 Random Glucose 100 (60-115) mg/dL Calcium 9.7 (8.4-10.2) mg/dL Magnesium 2.1 (1.6-2.6) mg/dL Total Bilirubin 1.2 H (0.0-1.0) mg/dL Direct Bilirubin 0.3 (0.0-0.5) mg/dL AST 20 (5-37) U/L ALT 18 (0-40) U/L Alkaline Phosphatase 100 (39-117) U/L Total Protein 9.6 H (6.5-8.0) g/dL Albumin 4.8 (3.5-5.0) g/dL Lipase 24 (8-78) U/L Influenza Type A (PCR) NEGATIVE (Negative) Influenza Type B (PCR) NEGATIVE (Negative) RSV RNA Qual (PCR) NEGATIVE (Negative) SARS-CoV-2 RNA (RT-PCR) NEGATIVE (Negative) Discharge Plan Discharge Clinical Impression: Abdominal pain Patient Disposition: Left W/O Completing Treatment Prescriptions: No Action albuterol sulfate 90 mcg/actuation HFA aerosol inhaler 2 puff inhalation Q4H PRN (Reason: bronchospasm) Qty: 8.5 0RF celecoxib [Celebrex] 200 mg capsule 200 mg PO BID 30 Days Qty: 60 3RF verapamil 120 mg tablet extended release 120 mg PO BID Flovent HFA 110 mcg/actuation HFA aerosol inhaler 2 puff inhalation BID Qty: 12 3RF Rx Instructions: administer with spacer clonazepam 0.5 mg tablet 0.5 mg PO DAILY fluoxetine 20 mg capsule 20 mg PO DAILY PRN mirtazapine 30 mg tablet 30 mg PO BEDTIME Discharge Date/Time: 12/24/24 23:53
[2024-12-24 21:02] LABS: MANUAL DIFF FLAG NO
[2024-12-24 21:05] LABS: Basophils Percent Auto 0.5 % (0-2); Eosinophils Absolute Auto 0.3 X10*3/uL (0.0-0.4); Hematocrit 43.3 % (42.0-52.0); Hemoglobin 15.4 g/dl (14.0-18.0); Imm Gran Abs Auto 0.02 X10*3/uL (0.00-0.03); Imm Gran Pct Auto 0.2 % (0.0-0.4); Lymphocytes Percent Auto 23.5 % (20-40); Mean Corpuscular HGB Conc 35.6 g/dl (31.0-36.0); Mean Corpuscular Hemoglobin 31.7 pg (27.0-33.0); Mean Corpuscular Volume 89.1 fL (80.0-98.0); Mean Platelet Volume 10.7 fL (9.4-12.4); Monocytes Absolute Auto 0.7 X10*3/uL (0.1-1.2); Monocytes Percent Auto 8.6 % (2-11); Neutrophils Absolute Auto 5.4 x10*3/uL (2.0-8.3); Neutrophils Percent Auto 64.2 % (45-73); Platelet Count 234 X10*3/uL (160-400); Red Blood Count 4.86 X10*6/uL (4.60-5.80); White Blood Count 8.4 X10*3/uL (4.8-10.8)
[2024-12-24 21:22] LABS: Alanine Aminotransferase 18 U/L (0-40); Albumin Level 4.8 g/dL (3.5-5.0); Alkaline Phosphatase 100 U/L (39-117); Anion Gap 15 (12-20); Aspartate Amino Transferase 20 U/L (5-37); Bilirubin Direct 0.3 mg/dL (0.0-0.5); Bilirubin Total 1.2 mg/dL (0.0-1.0); Blood Urea Nitrogen 19 mg/dL (9-16); Calcium 9.7 mg/dL (8.4-10.2); Carbon Dioxide 22 mmol/L (22-29); Chloride 108 mmol/L (96-108); Creatinine Clr Calc Pharmacy 124.5; Estimated Glomerular Filt Rate > 60; Glucose Random 100 mg/dL (60-115); Lipase 24 U/L (8-78); Magnesium 2.1 mg/dL (1.6-2.6); Sodium 141 mmol/L (135-145); Total Protein 9.6 g/dL (6.5-8.0)
[2024-12-24 21:54] LABS: Influenza A PCR NEGATIVE (Negative); Influenza B PCR NEGATIVE (Negative); Resp Syncy Virus RNA Qual PCR NEGATIVE (Negative); SARS COV2 PCR INHOUSE NEGATIVE (Negative)
== END 2024-12-24 23:53 | disposition left against medical advice (07) ==
PROVIDERS: Physician Assistant Medical; Emergency Provider Emergency Medicine; PCP Internal Medicine
DX: R10.9 Unspecified abdominal pain (principal); R11.2 Nausea with vomiting, unspecified; Z03.818 Encounter for observation for suspected exposure to other biological agents ruled out; E78.00 Pure hypercholesterolemia, unspecified; J45.909 Unspecified asthma, uncomplicated; K76.0 Fatty (change of) liver, not elsewhere classified; Z93.2 Ileostomy status
CPT/HCPCS: 0241U; 74018; 80048; 80076; 83690; 83735; 85025; 99281; 99283

== ENCOUNTER → 2024-12-24 20:19 | Outpatient (BNV) | payer BC, SELFPAY | PROVIDERS: PCP Internal Medicine; Visit Provider Radiology Neuroradiology | DX: K59.00 Constipation, unspecified (principal); R11.2 Nausea with vomiting, unspecified | CPT/HCPCS: 74018 ==

== ENCOUNTER 2025-01-14 14:41 | Outpatient (AMB) | payer BC, SELFPAY ==
--- NOTE | 2025-01-14 14:42 | A.OFFPC_ITS ---
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: No Accompanied by: Self / Same As Patient Allergies gluten Allergy (Mild, Verified 01/14/25 14:43) celiac lactose Allergy (Mild, Verified 01/14/25 14:43) unknown Medication List - Last Reconciled 01/14/25 by Winter Steele MD albuterol sulfate 90 mcg/actuation 2 puffs inhalation Q4H PRN celecoxib (Celebrex) 200 mg PO BID PRN clonazepam 0.5 mg PO DAILY PRN fluoxetine 20 mg PO DAILY PRN fluticasone propionate 110 mcg/actuation 2 puffs inhalation BID mirtazapine 30 mg PO BEDTIME verapamil ER 120 mg PO BID Tobacco use date assessed: 01/14/25 Dental Screening Dental Screen Date: 01/14/25 Did you have a dental visit in the last 12 months?: No Did you have a dental problem in the last 6 months where you did not have access to dental care?: No Was dental information given to patient?: No [facility] Medical History (Updated 01/14/25 @ 15:32 by Winter Steele MD) Obesity (BMI 30-39.9) Bilateral hip pain Avascular bone necrosis H/O sigmoidoscopy SBO (small bowel obstruction) Partial obstruction of colon Crohn disease Acute ulcerative colitis POLI (acute kidney injury) Abdominal pain Asthma Portal vein thrombosis BMI 35.0-35.9,adult Body mass index (BMI) of 37.0 to 37.9 in adult De Quervain's disease (tenosynovitis) Ulcerative colitis IBS (irritable bowel syndrome) GERD (gastroesophageal reflux disease) Surgical History Hx of colonoscopy Hx laparoscopic cholecystectomy History of ileostomy H/O total colectomy History of incision and drainage History of arthroscopy of left shoulder History of endoscopy Family History (Updated 01/14/25 @ 15:24 by Winter Steele MD) Sister Crohn's disease Father History of ulcerative colitis Sister No problems noted. Sister No problems noted. Mother Substance use disorder Mental health disorder Brother No problems noted. Brother No problems noted. Maternal Grandfather CVA (cerebral vascular accident) Social History (Updated 01/14/25 @ 15:25 by Winter Steele MD) Housing: House Alcohol intake: current Alcohol intake frequency: holidays/special occasions only Alcohol type: hard liquor Comment: 1-2 a night Patient Tobacco Use Status: Former Tobacco user Tobacco use type: Cigarette Years Smoked: quit high school, marijuana, tincture, no smoking e-Cigarette/Vaping Use: Never Used Second Hand Smoke Exposure: No Current occupational status: employed Cognitive needs: No Hearing needs: No Vision needs: No Questionnaire PHQ-9 Over the last 2 weeks, how often have you been bothered by any of the following problems? 1. Little interest or pleasure in doing things: not at all 2. Feeling down, depressed, or hopeless: not at all 3. Trouble falling or staying asleep, or sleeping too much: not at all 4. Feeling tired or having little energy: not at all 5. Poor appetite or overeating: not at all 6. Feeling bad about yourself - or that you are a failure or have let yourself or your family down: not at all 7. Trouble concentrating on things, such as reading the newspaper or watching television: not at all 8. Moving or speaking so slowly that other people could have noticed. Or the opposite - being so fidgety or restless that you have been moving around a lot more than usual: not at all 9. Thoughts that you would be better off or of hurting yourself in some way: not at all Total score: 0 Depression Screening Interpretation: Negative Depression Screening Done: Yes Source: Developed by Drs. Raymond Hein, Kanwal Coello, Dick Henning and colleagues, with an educational monroe from [employer]. Thrive Questionnaire Date Thrive assessed: 01/14/25 I am a: Patient What is your living situation today?: I have a steady place to live Within the past 12 months, did the food you bought not last and you didn't have the money to get more?: Never true Within the past 12 months, did you worry whether your food would run out before you got money to buy more?: Never true Do you have trouble paying for medicines?: No Do you have trouble getting transportation to medical appointments?: No Do you have trouble paying your heating and electricity bill?: No Do you have trouble taking care of your child, family member or friend?: No Do you have trouble with day-to-day activities such as bathing, preparing meals, shopping, managing finances, etc.?: No Are you currently unemployed and looking for a job?: No Are you interested in more education?: No Please select the resources that you would like help with: None Currently or been in a relationship where the following occur: No concerns reported THRIVE Score: 0 AUDIT C Alcohol Use Questionnaire (AUDIT-C) 1. How often do you have a drink containing alcohol?: 2-3 times a week 2. How many drinks containing alcohol do you have on a typical day when you are drinking?: 3 or 4 3. How often do you have six or more drinks on one occasion?: Less than monthly Total Score: 5 CHERYL-7 AMB Questionnaire CHERYL-7 Date CHERYL - 7 assessed: 01/14/25 Feeling nervous, anxious, or on edge: 0 = Not at all Not being able to stop or control worryin = Not at all Worrying too much about different things: 0 = Not at all Trouble relaxin = Not at all Being so restless that it is hard to sit still: 0 = Not at all Becoming easily annoyed or irritable: 0 = Not at all Feeling afraid as if something awful might happen: 0 = Not at all Total CHERYL-7 score (0-4 normal; 5-9 mild; 10-14 moderate; 15-21 severe): 0 Source: Developed by Drs. Raymond Hein, Kanwal Coello, Dick Henning and colleagues, with an educational monroe from [employer]. Review of Systems Const Denies poor appetite and Denies weakness Eyes Denies no additional complaints ENT Reports Normal hearing present, Denies dizziness, Denies nasal congestion, Denies tinnitus and Denies sore throat Card Denies chest pain, Denies syncope, Denies rapid heart rate and Denies dyspnea Resp Denies cough and Denies dyspnea GI Denies change in stool character, Reports constipation, Denies diarrhea, Denies nausea and Denies vomiting Denies dysuria and Denies urinary frequency Neuro Reports Normal hearing present, Denies confusion, Denies dizziness, Denies syncope and Denies weakness Psych Denies confusion Physical exam (Primary Care) Vital Signs: Last Vital Signs Pulse 106 H 01/14/25 14:43 BP 126/82 01/14/25 14:43 Pulse Ox 97 01/14/25 14:43 Oxygen Delivery Method Room Air 01/14/25 14:43 BMI result Body Mass Index 34.0 Tobacco/Smoking Status: Tobacco use Status Tobacco use date assessed 01/14/25 01/14/25 14:49 Patient Tobacco Use Status Former Tobacco user 01/14/25 14:49 Tobacco use type Cigarette 01/14/25 14:49 e-Cigarette/Vaping Use Never Used 01/14/25 14:49 PHQ-9: PHQ-9 Score PHQ-9: Total score 0 01/14/25 14:49 Depression Screening Interpretation: Negative Thrive Assessment: Date of Thrive Assessment Date Thrive assessed 01/14/25 01/14/25 14:49 Currently or been in a relationship where the following occur: No concerns reported Const General: No confusion Orientation/consciousness: No confusion HENMT Head: Yes normocephalic Ears: external ears normal and TM's normal bilaterally Face and sinus: Yes normal facial exam Mouth: moist mucous membranes Throat: Yes tonsils normal Eyes Conjunctivae: conjunctivae normal Pupils: Equal, round and reactive pupils present and Pupil accommodation reflex normal Direct Ophthalmoscopy: normal light reflex Neck Neck: No lymphadenopathy Thyroid: Thyroid normal Chest Chest palpation & inspection: normal inspection of the chest Resp Effort & Inspection: normal respiratory effort and no audible wheezes Auscultation: clear to auscultation bilaterally, no crackles, no wheezes and lung sounds not diminished Cardio Rate: regular rate Rhythm: regular rhythm Peripheral pulses: radial pulses present and dorsalis pedis present GI Other: RLQ ileostomy site Palpation (GI): no masses Auscultation: normal bowel sounds and normoactive bowel sounds Rectal Exam - Male: Yes deferred Skin General skin exam: no rashes or lesions noted Rashes: no rashes Neuro General: No confusion Cranial nerves: Yes Equal, round and reactive pupils present and Yes Normal hearing present Cognition (Neuro): normal cognition Gait exam (Neuro): Normal gait present Motor exam (neuro): 5/5 motor strength present throughout Deep tendon reflexes (DTR's): Right brachioradialis reflex intensity grade: 2+, Left brachioradialis reflex intensity grade: 2+, Right patellar reflex intensity grade: 2+ and Left patellar reflex intensity grade: 2+ Extrem General: No edema Coding Level of Care Code Est Pt Prev Care 18-39y(93030) Diagnoses Avascular necrosis of bones of both hips M87.051; M87.052 Annual physical exam Z00.00 History of sleeve gastrectomy Z90.3 Fatty liver K76.0 Hypercholesterolemia E78.00 Mild intermittent asthma without complication J45.20 Asthma severity: mild Asthma persistence: intermittent Asthma complication type: uncomplicated Gastroesophageal reflux disease without esophagitis K21.9 Esophagitis presence: without esophagitis Obesity (BMI 30-39.9) E66.9 Assessment & Plan Assessment & Plan (1) Avascular necrosis of bones of both hips: Code(s): M87.051 - Idiopathic aseptic necrosis of right femur; M87.052 - Idiopathic aseptic necrosis of left femur Category: Medical Plan: Patient has seen ortho and has advised to continue monitoring this (2) Annual physical exam: Code(s): Z00.00 - Encounter for general adult medical examination without abnormal findings Category: Medical Plan: Patient is advised to eat healthy, keep well hydrated, keep active and have adequate sleep. (3) History of sleeve gastrectomy: Comment: November 15/2024 Code(s): Z90.3 - Acquired absence of stomach [part of] Category: Surgical Plan: Continue to follow-up with bariatric (4) Fatty liver: Comment: [address] biopsy done November 2023 grade 3 steatosis with steatoh epatitis 12/10 Code(s): K76.0 - Fatty (change of) liver, not elsewhere classified Category: Medical Plan: Low-fat diet and exercise (5) Hypercholesterolemia: Code(s): E78.00 - Pure hypercholesterolemia, unspecified Category: Medical Plan: Avoid fried foods, chicken skin, eggs, butter margarine, pastries and meat. Be it pork or beef they have a lot of cholesterol LDL goal of less than 130 and triglyceride of less than 150. (6) Asthma: Code(s): J45.909 - Unspecified asthma, uncomplicated Category: Medical Qualifiers: Asthma severity: mild Asthma persistence: intermittent Asthma complication type: uncomplicated Qualified Code(s): J45.20 - Mild intermittent asthma, uncomplicated Plan: Continue with albuterol inhaler as needed (7) GERD (gastroesophageal reflux disease): Code(s): K21.9 - Gastro-esophageal reflux disease without esophagitis Category: Medical Qualifiers: Esophagitis presence: without esophagitis Qualified Code(s): K21.9 - Gastro-esophageal reflux disease without esophagitis Plan: Avoid the foods that causes that usually spicy foods, tomato products, juices, coffee, soda and foods that your sensitive to. After eating do not lie down, allow 3-4 hours before in lie down. And keep the head of bed above 30 degrees to avoid the acid from going up. (8) Obesity (BMI 30-39.9): Code(s): E66.9 - Obesity, unspecified Category: Medical Plan History of Present Illness The patient is a 34-year-old male presenting with an annual well physical exam. Significant medical history includes obesity and multiple chronic conditions such as inflammatory bowel disease, GERD, asthma, generalized anxiety disorder, hypercholesterolemia, and adjustment disorder. The patient also suffers from avascular necrosis of the hip, being adequately managed by monitoring and physical therapy. In November, the patient experienced rapid streptococcal pharyngitis treated effectively with antibiotics. Current laboratory results indicate elevated blood glucose non-fasting and cholesterol management challenges. Previously reported triglyceride levels were measured at 150 mg/dL. A detailed review of the patient's medications was conducted, encompassing verapamil for cardiovascular concerns, mirtazapine, and fluoxetine for mental health management, and various asthma and inflammation management medications including albuterol and Celebrex. Family history indicates autoimmune and inflammatory diseases with Crohn's disease in a sister and ulcerative colitis in the father, alongside cardiovascular events in the maternal lineage. Health Maintenance - Flu shot administered last year, awaiting annual update. - Cholesterol management with dietary recommendations for low-fat intake and exercise, aiming for LDL less than 130 mg/dL and triglycerides less than 150 mg/dL. - Weight management through a low-fat diet and regular physical activity with a target weight below 200 lbs. - Monitoring and management for elevated blood sugar levels. Social History - Reports of alcohol intake: 1-2 drinks per night, currently attempting to reduce consumption. - No current tobacco use, historical cessation of cigarette smoking, current use of non-cigarette smoking materials occasionally. - Hearing impairment noted, pending acquisition of new hearing aids. - Allergies include lactose and gluten. Review of Systems - Constitutional: Denies fever, night sweats, or significant weight changes. - Respiratory: Denies dyspnea on exertion, reports asthma managed with inhalers. - Cardiovascular: Denies chest pain, dizziness, syncope, or palpitations, controlled with verapamil. - Gastrointestinal: Reports episodes of diarrhea associated with inflammatory bowel disease without recent flare. - Musculoskeletal: Reports no new joint pains, managed avascular necrosis of the hip. - Neurological: No reports of dizziness or syncope. - Psychological: Managed generalized anxiety disorder. - Dermatological: Denies unexplained rashes or itching. - Hearing: Chronic impairment without new acuity changes. Physical Exam General: Cooperative, healthy appearing, comfortable, no acute distress and well developed Orientation: Patient oriented x3 Limitations: No limitations Head: Normal to inspection Ears: Hearing issues noted, patient has a history of hearing problems and has not been able to get new hearing aids Nose: Normal external nose present Face and sinus: Normal facial exam Eyes: Appearance normal, both eyes and all related structures Neck: Normal visual inspection and Yes full ROM Respiratory: Normal respiratory effort and able to speak in complete sentences. Clear to auscultation bilaterally Cardiovascular: Regular rate and rhythm. Normal S1 and S2 GI: Normal to inspection. Soft to palpation and nontender Skin: No rashes or lesions noted Neuro: Patient oriented x3 Extremities: Normal to inspection Results - Labs: Normal blood count, electrolytes, stable renal function. - Tests: KUB negative for obstruction. - Imaging: MRI of hips indicates no abnormalities. - Screenings: Thyroid tests normal, cholesterol and triglycerides under active management, blood sugar mildly elevated at 100 mmol/L in a non-fasting state. Plan The visit focused on addressing obesity and its related complications by reinforcing weight management through dietary adjustments and increasing physical activity. Asthma and anxiety continue to be managed with current pharmaceuticals. GERD management remains stable with current treatment. The previous diagnosis of avascular necrosis of the hip does not currently necessitate surgical intervention, and regular monitoring will continue, along with physical therapy support. Hypercholesterolemia is under review, with goals to minimize LDL levels through dietary regulation. The patient is recommended ongoing vigilance concerning elevated blood sugar levels, suggesting lifestyle interventions. Vaccinations are reviewed and remain current with no immediate actions required. Follow-up visit plans include further review of cholesterol management and screening for disease risk factors. Patient was informed and verbally consented to the use of an ambient scribe for clinic note documentation during this visit. Discussion Notes During the consultation, I discussed with the patient ongoing management for obesity and related conditions, emphasizing the importance of lifestyle adjustments. I highlighted the irreversible risks associated with projected weight loss treatments and addressed potential worsening of GERD. The importance of continued monitoring of hypercholesterolemia was emphasized, and follow-up appointments were suggested to review progress in weight management and cholesterol control. Medication adherence was stressed for prescribed therapy, specifically for asthma and anxiety, noting potential adverse effects. I address ed the importance of accurate follow-ups, including regular blood work and imaging when needed. Patient Instructions - Continue adherence to a low-fat diet and regular physical exercise; aim for weight below 200 lbs. - Maintain regular use of prescribed asthma inhalers and anxiety medication. - Monitor symptoms related to GERD and report any exacerbations. - Ensure regular follow-ups with bariatric specialists and orthopedics as advised. - Alcohol consumption should be moderated to reduce potential health impacts. - Report any new symptoms, such as exacerbated joint pain or respiratory issues, promptly. - Only take Celebrex when necessary for hip pain. - Follow-up for routine annual screenings and blood tests as advised. - Keep vaccinations up to date, including the annual flu shot. Medications: New tirzepatide (weight loss) (Zepbound) for 4 weeks 2.5 mg (0.5 mL) subcut QWEEK 2 mL 0RF E66.9 - Obesity, unspecified Changed From celecoxib (Celebrex) 200 mg PO BID PRN Z90.3 - Acquired absence of stomach [part of] To celecoxib (Celebrex) 200 mg PO BID 30 days 60 caps 0RF Z90.3 - Acquired absence of stomach [part of]
[2025-01-14 14:43] VITALS: BP 126/82; PULSE 106; O2SAT 97; BMI 34.0
--- OUTSIDE RECORDS SUMMARY | 2025-01-14 18:01 | XMS_ITS | Data Portability ---
Author Organization [facility], [address] Address [address] [place] [address] Care Team Providers [facility] Director Name Role Phone JOSE GABBYTORRIE Primary Care Provider [phone] Assessment No assessment recorded. Plan of Treatment Reminders Order Date Submit Date Provider Last Modified By Organization Details Last Modified Time Details Appointments None recorded. Lab rapid strep group A, throat 2021 [facility], [address] [place] [address], [phone], 12:37:00 rapid SARS CoV 2 Ag, QL IA, respiratory specimen 2021 [facility], [address] [place] [address], [phone], 12:37:00 Referral None recorded. Procedures None recorded. Surgeries None recorded. Imaging None recorded. Medication Orders azithromyci n 250 mg tablet 2021 [id number], [address] [place], [place], [phone], 12:37:14 Patient TargetsNo targets recorded. Patient Instructions Encounter Date Encounter Id Patient Instructions Last Modified By Organization Details Last Modified Time 11/04/2022 [id number] sore throat: car e instructions Not available [...] Unknown Analyte Normal =Negat [place] Not Available [address] [place] [address], [phone], 11/04/2022 11:50:21 11/04/20 22 11/04/2022 rapid SARS CoV 2 Ag, QL [place], respi rator y speci men Unknown Analyte negati ve Not Available [id number] [place] [address], [phone], 11/04/2022 11:50:21 11/04/20 22 11/04/2022 rapid strep group A, throa t Unknown Analyte Normal = Negati ve Not Available [address] [place] [address], [phone], 11/04/2022 11:27:18 11/04/20 22 11/04/2022 rapid strep group A, throa t Unknown Analyte negati ve Not Available [address] [place] [address], [phone], 11/04/2022 11:27:18 Result Notes None recorded. Problems Name Problem SNOMED Code Status Onset Date Resolution Date Notes Provider Name and Address Organization Details Recorded Time Gastroesophage al reflux disease 816233787 Active 2021 JCARLOS Palacios - [facility] 11:30:50 Hypertensive disorder 14410954 Active 2021 WAYNE VALDEZ null, [place] - [facility] 2 11:30:59 Asthma 591196686 Active 2021 WAYNE VALDEZ null, [place] - [facility] 2 11:31:06 Right colectomy Active 2021 WAYNE COURTNEY null, [place] - [facility] 11:31:21 Chronic colitis 97619423 Active 2021 WAYNE VALDEZ null, [place] - [...] Arterial blood by Pulse oximetry Heart rate Pain severity - 0-10 verbal numeric rating [Score] - Reported Respiratory rate Body temperature Systolic blood pressure Diastolic blood pressure Provider Name and Address Organization Details Last Updated DateTime 182.88 cm 42 kg/m2 445514. 63 g 99 % 99 % 70 /min 7 18 /min 98.2 [degF] 138 mm[Hg] 91 mm[Hg] WAYNE GARBER [facility] 11:35:49 Social History Question Answer Notes LastModified by [employer] ion Details LastModified Time Tobacco Smoking Status Never Smoker JCARLOS Palacios [facility] 11/04/2022 11:33:02 What Is Your [...] dose or 50 mcg/0.25mL dose 03/21/2022 completed JCARLOS Palacios - [facility] 11/04/2022 11:29:39 Past Encounters Encounter ID Performer Location Encounter Start Date Encounter Closed Date Diagnosis/Indication Diagnosis SNOMED-CT Code Diagnosis ICD10 Code Diagnosis Note [id number] [facility] [address] [phone] 11/04/2022 08:48:39 11/04/2022 12:47:05 Acute sinusitis 62930756 J01.90 Health Concerns Section Related Observation LastModified by Organization Detai ls LastModified Time None Recorded Concern Status LastModified by Organization Details LastModified Time None Recorded Advance Directives Directive None Recorded Payers Encounter Date Sequence Insurance Name Policy Number Policy Bowen Covered Member ID Bowen Member ID Guarantor Name 11/04/2022 1 [facility] [id number] Alex Morales [id number] Alex Dyer Notes Date Note Type Note Provider Name and Address Organization Details Recorded Time 2 text/html Sore throatReported bypatient.Source of patient informationInformation obtained from patient; Patient arrived at Urgent Care ambulatory Location:throat Severity:moderate Onset/Timin months JCARLOS Deal [address] [place], [place] [address], [phone], [place] - [facility] 11/04/2022 12:37:45
== END 2025-01-14 15:38 | disposition home or self-care (01) ==
LOC: HO.HMCH 14:42
PROVIDERS: PCP Internal Medicine; Visit Provider Internal Medicine
DX: Z00.00 Encounter for general adult medical examination without abnormal findings (principal); M87.051 Idiopathic aseptic necrosis of right femur; M87.052 Idiopathic aseptic necrosis of left femur; E66.9 Obesity, unspecified; Z68.34 Body mass index [BMI] 34.0-34.9, adult; Z90.3 Acquired absence of stomach [part of]; K76.0 Fatty (change of) liver, not elsewhere classified; E78.00 Pure hypercholesterolemia, unspecified; J45.20 Mild intermittent asthma, uncomplicated; K21.9 Gastro-esophageal reflux disease without esophagitis

== ENCOUNTER → 2025-01-14 14:41 | Outpatient (BNVA) | payer BC, SELFPAY | PROVIDERS: PCP Internal Medicine; Visit Provider Internal Medicine ==

== ENCOUNTER 2025-02-21 13:57 | Outpatient (REF) | payer BC, SELFPAY ==
[2025-02-21 17:27] LABS: Influenza A PCR NEGATIVE (Negative); Influenza B PCR NEGATIVE (Negative); Resp Syncy Virus RNA Qual PCR NEGATIVE (Negative); SARS COV2 PCR INHOUSE NEGATIVE (Negative)
== END 2025-02-21 13:58 | disposition home or self-care (01) ==
LOC: HO.LAB 13:57
PROVIDERS: PCP Internal Medicine
DX: J02.9 Acute pharyngitis, unspecified (principal); R68.89 Other general symptoms and signs; J45.909 Unspecified asthma, uncomplicated; R50.9 Fever, unspecified
CPT/HCPCS: 0241U; 87070; 87880

== ENCOUNTER 2025-02-21 13:57 | Outpatient (AMB) | payer BC, SELFPAY ==
[2025-02-21 14:13] VITALS: BP 104/70; PULSE 99; RESP 20; TEMP 37.1; O2SAT 99; BMI 33.0
--- NOTE | 2025-02-21 14:13 | MHC.PC.OV ---
Vital Signs 02/21/25 14:13 Height 6 ft Weight 243 lb 6.4 oz BMI 33.0 BP 104/70 Blood Pressure Location Lt brachial Position Sitting Respiration 20 Pulse 99 Pulse Source Pulse Oximeter Temp 98.7 F Temp Source Oral Pulse Oximetry (%) 99 Oxygen Delivery Method Room Air Intake Visit Reasons: sore throat Soil Conservation Technician Required: No Accompanied by: Self / Same As Patient Allergies gluten Allergy (Mild, Verified 02/21/25 14:22) celiac lactose Allergy (Mild, Verified 02/21/25 14:22) unknown Medication List - Last Reconciled 02/21/25 by Gail Chau PA-C albuterol sulfate 90 mcg/actuation 2 puffs inhalation Q4H PRN azithromycin 250 mg PO DIRECTED celecoxib (Celebrex) 200 mg PO BID 30 days clonazepam 0.5 mg PO DAILY PRN fluoxetine 40 mg PO DAILY fluticasone propionate 110 mcg/actuation 2 puffs inhalation BID mirtazapine 30 mg PO BEDTIME mirtazapine 15 mg PO BEDTIME prednisone 20 mg PO BID promethazine-DM 6.25-15 mg/5 mL mL PO tirzepatide (weight loss) (Zepbound) 2.5 mg (0.5 mL) subcut QWEEK verapamil ER 120 mg PO BID Tobacco use date assessed: 02/21/25 Dental Screening Dental Screen Date: 02/21/25 Did you have a dental visit in the last 12 months?: No Did you have a dental problem in the last 6 months where you did not have access to dental care?: No Was dental information given to patient?: Patient has dentist HPI sore throat HPI Details 34-year-old male with past medical history of obesity, fatty liver disease, generalized anxiety disorder, peptic ulcer disease, hypercholesterolemia, GERD, asthma, inflammatory bowel disease last seen by Dr. Steele 01/2025 coming in for acute problem. Presenting with flu-like symptoms, including sore throat and congestion, lasting about a week. Otherwise negative at-home COVID-19 and influenza tests were mentioned. Symptoms starting about a week ago include sore throat, clogged ears, nausea with atypically liquid ostomy output, eye pain, and recent chills with cold feeling. Persistent clogged ear sensation despite pressure equalization attempts, and recent contact with sick household members, mother and daughter. He was seen in urgent care yesterday and given Zithromax and prednisone. [facility]LY [facility], [facility] Medical History Obesity (BMI 30-39.9) Bilateral hip pain Avascular bone necrosis H/O sigmoidoscopy SBO (small bowel obstruction) Partial obstruction of colon Crohn disease Acute ulcerative colitis POLI (acute kidney injury) Abdominal pain Asthma Portal vein thrombosis BMI 35.0-35.9,adult Body mass index (BMI) of 37.0 to 37.9 in adult De Quervain's disease (tenosynovitis) Ulcerative colitis IBS (irritable bowel syndrome) GERD (gastroesophageal reflux disease) Surgical History Hx of colonoscopy Hx laparoscopic cholecystectomy History of ileostomy H/O total colectomy History of incision and drainage History of arthroscopy of left shoulder History of endoscopy Family History Sister Crohn's disease Father History of ulcerative colitis Sister No problems noted. Sister No problems noted. Mother Substance use disorder Mental health disorder Brother No problems noted. Brother No problems noted. Maternal Grandfather CVA (cerebral vascular accident) Social History Housing: House Alcohol intake: current Alcohol intake frequency: holidays/special occasions only Alcohol type: hard liquor Comment: 1-2 a night Patient Tobacco Use Status: Former Tobacco user Tobacco use type: Cigarette Years Smoked: quit high school, marijuana, tincture, no smoking e-Cigarette/Vaping Use: Never Used Second Hand Smoke Exposure: No Current occupational status: employed Cognitive needs: No Hearing needs: No Vision needs: No Questionnaire Thrive Questionnaire Date Thrive assessed: 02/21/25 I am a: Patient What is your living situation today?: I have a steady place to live Within the past 12 months, did the food you bought not last and you didn't have the money to get more?: Never true Within the past 12 months, did you worry whether your food would run out before you got money to buy more?: Never true Do you have trouble paying for medicines?: No Do you have trouble getting transportation to medical appointments?: No Do you have trouble paying your heating and electricity bill?: No Do you have trouble taking care of your child, family member or friend?: No Do you have trouble with day-to-day activities such as bathing, preparing meals, shopping, managing finances, etc.?: No Are you currently unemployed and looking for a job?: No Are you interested in more education?: No Please select the resources that you would like help with: None Currently or been in a relationship where the following occur: No concerns reported THRIVE Score: 0 AUDIT C Alcohol Use Questionnaire (AUDIT-C) 1. How often do you have a drink containing alcohol?: 2-4 times a month 2. How many drinks containing alcohol do you have on a typical day when you are drinking?: 1 or 2 3. How often do you have six or more drinks on one occasion?: Never Total Score: 2 Score Reviewed/Action Taken: No CHERYL-7 AMB Questionnaire CHERYL-7 Date CHERYL - 7 assessed: 01/14/25 Source: Developed by Drs. Raymond Hein, Kanwal Coello, Dick Henning and colleagues, with an educational monroe from [employer]. Review of Systems Const Reports body aches, Reports chills, Reports fever(s), Reports headache(s) and Denies poor appetite Eyes Reports no additional complaints ENT Reports dysphagia, Denies dizziness, Reports headache(s) and Reports odynophagia Card Denies chest pain, Denies syncope, Denies edema, Denies irregular heart rhythm, Denies lightheadedness and Denies dyspnea Resp Denies cough and Denies dyspnea GI Denies abdominal pain, Denies constipation, Reports dysphagia, Reports diarrhea, Denies nausea, Reports odynophagia and Denies vomiting Reports no additional complaints Musc Reports no additional complaints and Denies abnormal gait Skin/Breast Reports system reviewed and no additional complaints, except as documented Neuro Denies abnormal gait, Denies dizziness, Denies syncope and Reports headache(s) Psych Reports no additional complaints Physical exam (Primary Care) Vital Signs: Last Vital Signs Temp 98.7 F 02/21/25 14:13 Pulse 99 02/21/25 14:13 Resp 20 02/21/25 14:13 BP 104/70 02/21/25 14:13 Pulse Ox 99 02/21/25 14:13 Oxygen Delivery Method Room Air 02/21/25 14:13 BMI result Body Mass Index 33.0 Tobacco/Smoking Status: Tobacco use Status Tobacco use date assessed 02/21/25 02/21/25 14:18 Patient Tobacco Use Status Former Tobacco user 02/21/25 14:18 Tobacco use type Cigarette 02/21/25 14:18 e-Cigarette/Vaping Use Never Used 02/21/25 14:18 Thrive Assessment: Date of Thrive Assessment Date Thrive assessed 02/21/25 02/21/25 14:18 Currently or been in a relationship where the following occur: No concerns reported Const General: cooperative, healthy appearing, comfortable and no acute distress Orientation/consciousness: patient oriented x3 HENMT Head: Yes normocephalic Ears: hearing grossly normal bilaterally, TM's normal bilaterally and EAC's normal General nose exam: Normal external nose present Face and sinus: Yes normal facial exam Throat: Yes tonsils normal, Yes uvula midline and Yes posterior oropharynx abnormal (erythema ) Eyes General: appearance normal, both eyes and all related structures Conjunctivae: conjunctivae normal Neck Other: posterior cervical lymphadenopathy Neck: Yes full ROM Resp Effort & Inspection: normal respiratory effort Auscultation: clear to auscultation bilaterally, no crackles, no rales, no rhonchi and no wheezes Cardio Rate: regular rate Rhythm: regular rhythm Skin General skin exam: no rashes or lesions noted Neuro General: patient oriented x3 Gait exam (Neuro): Normal gait present Extrem General: Yes normal to inspection, Yes full ROM and No edema Psych Affect: normal affect Attitude: cooperative Insight: Good insight present (Psych) Judgement: Good judgement present (Psych) Results AMB Rapid Strep AMB Rapid Strep Negative Last Edit by Yany Anthony CMA on 02/21/25 14:40 Coding Level of Care Code Est Pt Level 3 (82603) Diagnoses Sore throat J02.9 Assessment & Plan Assessment & Plan (1) Sore throat: Code(s): J02.9 - Acute pharyngitis, unspecified Category: Medical Plan: I plan to manage this patient's viral upper respiratory infection-like symptoms conservatively, understanding that most viral conditions resolve with adequate symptomatic care, while monitoring for changes in symptoms over the next week. Comprehensive support regarding rest, hydration, and potential medical intervention routes were delivered coherently during our discussion. Patient to continue on Azithromycin and prednisone as prescribed by urgent care. Plan to obtain throat culture. Plan This note was constructed using voice recognition software. While every effort has been made to ensure accuracy and mixing and molding machine operator, still areas may have been included sometimes these areas may affect the content or meeting of the given symptoms. Total time spent caring for the patient today was 20 minutes. This includes time spent before the visit reviewing the chart, time spent during the visit, and time spent after the visit and documentation. Patient was informed and verbally consented to the use of an ambient scribefor clinic note documentation during this visit. Orders: Orders SARS-CoV2/FLU/RSV Today R68.89 - Other general symptoms and signs Throat Culture Today J02.9 - Acute pharyngitis, unspecified AMB Rapid Strep Screen Today J02.9 - Acute pharyngitis, unspecified Medications: Discontinued tirzepatide (weight loss) (Zepbound) for 4 weeks Discontinued Reason: Patient no longer taking 2.5 mg (0.5 mL) subcut QWEEK 2 mL 0RF E66.9 - Obesity, unspecified
--- OUTSIDE RECORDS SUMMARY | 2025-02-21 14:20 | XMS_ITS | Data Portability ---
Author Organization [facility], [address] Address [address] [place] [address] Care Team Providers Care Market Developer Name Role Phone JOSE GABBYTORRIE Primary Care Provider [phone] Assessment No assessment recorded. Plan of Treatment Reminders Order Date Submit Date Provider Last Modified By Organization Details Last Modified Time Details Appointments None recorded. Lab rapid strep group A, throat 2021 [facility], [address] [place] [address], [id number], 12:37:00 rapid SARS CoV 2 Ag, QL IA, respiratory specimen 2021 [facility], [address] [place] [address], [id number], 12:37:00 Referral None recorded. Procedures None recorded. Surgeries None recorded. Imaging None recorded. Medication Orders azithromyci n 250 mg tablet 2021 [id number], [address] [place], [place], [phone], 12:37:14 Patient TargetsNo targets recorded. Patient Instructions Encounter Date Encounter Id Patient Instructions Last Modified By Organization Details Last Modified Time 11/04/2022 [id number] sore throat: car e instructions Not available [...] Unknown Analyte Normal =Negat [place] Not Available [address] [place] [address], [id number], 11/04/2022 11:50:21 11/04/20 22 11/04/2022 rapid SARS CoV 2 Ag, QL IA, respi rator y speci men Unknown Analyte negati ve Not Available [address] [place] [address], [id number], 11/04/2022 11:50:21 11/04/20 22 11/04/2022 rapid strep group A, throa t Unknown Analyte Normal = Negati ve Not Available [address] [place] [address], [id number], 11/04/2022 11:27:18 11/04/20 22 11/04/2022 rapid strep group A, throa t Unknown Analyte negati ve Not Available [address] [place] [address], [id number], 11/04/2022 11:27:18 Result Notes None recorded. Problems Name Problem SNOMED Code Status Onset Date Resolution Date Notes Provider Name and Address Organization Details Recorded Time Gastroesophage al reflux disease 717572425 Active 2021 JCARLOS Palacios - [facility] 11:30:50 Hypertensive disorder 41483528 Active 2021 WAYNE VALDEZ null, [place] - [facility] 2 11:30:59 Asthma 037434198 Active 2021 WAYNE VALDEZ null, [place] - [facility] 2 11:31:06 Right colectomy Active 2021 WAYNE COURTNEY null, [place] - [facility] 2 11:31:21 Chronic colitis 68668422 Active 2021 WAYNE VALDEZ null, [place] - [...] Last Updated DateTime 182.88 cm 42 kg/m2 331951. 63 g 99 % 99 % 70 /min 7 18 /min 98.2 [degF] 138 mm[Hg] 91 mm[Hg] WAYNE GARBER [facility] 11:35:49 Social History Question Answer Notes LastModified by Linkagoalizat ion Details LastModified Time Tobacco Smoking Status [...] SNOMED-CT Code Diagnosis ICD10 Code Diagnosis Note [id number] J[facility] Deal [address] [phone] 11/04/2022 08:48:39 11/04/2022 12:47:05 Acute sinusitis 23440556 J01.90 Health Concerns Section Related Observation LastModified by Organization Detai ls LastModified Time None Recorded Concern Status LastModified by Organization Details LastModified Time None Recorded Advance Directives Directive None Recorded Payers Encounter Date Sequence Insurance Name Policy Number Policy Bowen Covered Member ID Bowen Member ID Guarantor Name 11/04/2022 1 [facility] [id number] Alex Morales [id number] Alex Dyer Notes Date Note Type Note Provider Name and Address Organization Details Recorded Time 2 text/html Sore throatReported bypatient.Source of patient informationInformation obtained from patient; Patient arrived at Urgent Care ambulatory Location:throat Severity:moderate Onset/Timin months JCARLOS Deal [address] [place], [place] [address], [address], [place] - [facility] 11/04/2022 12:37:45
== END 2025-02-21 14:47 | disposition home or self-care (01) ==
PROVIDERS: PCP Internal Medicine
DX: J02.9 Acute pharyngitis, unspecified (principal)

== ENCOUNTER 2025-02-26 16:00 | Outpatient (RCR) | payer BC, SELFPAY ==
--- NOTE | 2025-01-17 14:18 | MHC.PT.EP ---
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 OBJECTIVELY, BEREKET HAS ALTERED GAIT W EXCESSIVE HIP ER AND Rt SUPINATION CREATING A LLI, DECR STRENGTH IN LEs, LIMITED HIP / HS FLEXIBILITY, AND INTERMITTENT GALE HIP PAIN. HE HAS DECR JOEL TO MORE INTENSE EXER ROUTINES, STAIR NAVIGATION, DRIVING, SQUATTING, BENDING, LIFTING... WE DISCUSSED THE PT POC, ADDRESSING THE ABOVE FINDINGS , INCR ROM, FUNCTIONAL MOBILITY/ BODY MECH, GENTLE/ PROGR STRENGTHENING, AND DEV OF A SAFE, HIP HEALTHY HEP. Frequency and Duration: The patient will be seen 2 x WK x 6 WKS Short Term Goals: DECR GALE HIP PAIN TO BY 50% INITIATE HEP-> STRETCHING FOR Rt > Lt HIP ER, HS, HIP FLEXORS... AND CORE ENGAGEMENT IMPROVE HIP ROM , Rt > Lt GRADUAL INCR BODY MECH TO REDUCE HIP STRESS W ADLs EDUC Pt RE SAFER FITNESS ROUTINES W REDUCED MECHANICAL STRESS ON GALE HIP COMPLEXES Detention Goals: Pt INDEP W PROGRESSIVE HEP AND SX MGMT TECHN-> PROMOTING MUSCLE STRENGTHENING Pt INCREASE GALE HIP JOINT MOBILITY Pt DEMON MORE EFFICIENT GAIT MECH, REDUCED COMPENSATORY HIP ER, ON LEVEL GROUND AND STAIRS RESTORE/ INCREASE ADL/ ACTIVITY JOEL EVIDENT W IMPROVED LEFI (48/80 AT EVAL) Treatment Plan: Modalities to reduce pain, spasms and effusion. Manual therapy to restore motion and function. Therapeutic exercise to improve strength and flexibility. Neuromuscular re-education for posture and balance. Therapeutic activities to return to functional activities of daily living. Electronically signed by: MADELIN ARROYO,PT Please sign and return to therapist. Thank you for your referral.
--- NOTE | 2025-04-22 14:24 | MHC.PT.DC ---
[facility] [place] Office [place] Office [place] Office [address] [phone] F: [phone] F: [phone] F: [phone] F: [phone] Physical Therapy Discharge Report Diagnosis: AVASCULAR NECROSIS OF BILATERAL HIPS Date of Surgery: Date of Evaluation: 01/17/25 Date of Discharge: 04/22/25 Treatments to Date: 7 Cancellations to Date: 3 No Shows to Date: Discharge Status: Improved Function Independent with HEP Patient Elected to Stop Discharge Summary: BEREKET HAS MADE PROGRESS W PT, HIS HAMSTRING FLEXIB IMPROVED, HE HAS LIMITED AROM IN HIP FLEX/ROTAT GALE, BENEFITTED FROM ADDITION OF STANDING CALF STRETCH AND HE NOTED HE FELT BETTER AFTERWARDS- HE NEEDED TC W QUAD EXER TO REDUCE THORACOLUMB COMPENSATION FOR LIMITED HIP MOB.. WE RECOMMENDED HE CONT IN PT APPROX 2 WKS TO FURTHER ADDRESS LEs FLEXIB, GLUTE ACTIV, AND FUNCT MOB/ BODY MECH SIMUL FOR Jt PROTECTION- THE Pt CANC HIS LAST PT APPTS , AND, THEREFORE, A FORMAL PT REASSESSMENT WAS NOT PERFORMED. [ End ] Electronically signed by: Charlene Bell,PT Please sign and return to therapist. Thank you for your referral.
== END 2025-04-22 14:25 | disposition home or self-care (01) ==
LOC: HO.PT 16:00
PROVIDERS: PCP Internal Medicine; Visit Provider Physician Assistant
DX: M87.051 Idiopathic aseptic necrosis of right femur (principal); M87.052 Idiopathic aseptic necrosis of left femur
CPT/HCPCS: 97110; 97162; 97530; 97535

== ENCOUNTER 2025-04-17 15:48 | Outpatient (AMB) | payer BC, SELFPAY ==
[2025-04-17 16:00] VITALS: BP 128/80; PULSE 76; RESP 18; O2SAT 98; BMI 34.9
--- NOTE | 2025-04-17 16:00 | A.OFFPC_ITS ---
Vital Signs 04/17/25 16:00 Height 6 ft Weight 257 lb 2 oz BMI 34.9 BP 128/80 Blood Pressure Location Lt brachial Position Sitting Respiration 18 Pulse 76 Pulse Source Pulse Oximeter Pulse Oximetry (%) 98 Oxygen Delivery Method Room Air Intake Visit Reasons: obesity Allergies gluten Allergy (Mild, Verified 04/17/25 16:03) celiac lactose Allergy (Mild, Verified 04/17/25 16:03) unknown Medication List - Last Reconciled 04/17/25 by Winter Steele MD albuterol sulfate 90 mcg/actuation 2 puffs inhalation Q4H PRN clonazepam 0.5 mg PO DAILY PRN fluoxetine 40 mg PO DAILY fluticasone propionate 110 mcg/actuation 2 puffs inhalation BID mirtazapine 15 mg PO BEDTIME verapamil ER 120 mg PO BID Tobacco use date assessed: 02/21/25 Dental Screening Dental Screen Date: 02/21/25 HPI obesity HPI Details 34-year-old obese male with a history of hyperhidrosis GERD inflammatory bowel disease with an ileostomy in place adjustment disorder asthma fatty liver history of sleeve gastrectomy and avascular necrosis of both hips. Patient has been following up with orthopedics and the last MRI showing negative results. Otherwise patient is concerned as the patient prescription for Zepbound deny and discussed with the patient the problem with insurance denials. Nevertheless patient wants to pursue that route. Otherwise has been stable has not been using the albuterol inhaler. [facility] Medical History Obesity (BMI 30-39.9) Bilateral hip pain Avascular bone necrosis H/O sigmoidoscopy SBO (small bowel obstruction) Partial obstruction of colon Crohn disease Acute ulcerative colitis POLI (acute kidney injury) Abdominal pain Asthma Portal vein thrombosis BMI 35.0-35.9,adult Body mass index (BMI) of 37.0 to 37.9 in adult De Quervain's disease (tenosynovitis) Ulcerative colitis IBS (irritable bowel syndrome) GERD (gastroesophageal reflux disease) Surgical History Hx of colonoscopy Hx laparoscopic cholecystectomy History of ileostomy H/O total colectomy History of incision and drainage History of arthroscopy of left shoulder History of endoscopy Family History Sister Crohn's disease Father History of ulcerative colitis Sister No problems noted. Sister No problems noted. Mother Substance use disorder Mental health disorder Brother No problems noted. Brother No problems noted. Maternal Grandfather CVA (cerebral vascular accident) Social History Housing: House Alcohol intake: current Alcohol intake frequency: holidays/special occasions only Alcohol type: hard liquor Comment: 1-2 a night Patient Tobacco Use Status: Former Tobacco user Tobacco use type: Cigarette Years Smoked: quit high school, marijuana, tincture, no smoking e-Cigarette/Vaping Use: Never Used Second Hand Smoke Exposure: No Current occupational status: employed Cognitive needs: No Hearing needs: No Vision needs: No Questionnaire PHQ-9 Over the last 2 weeks, how often have you been bothered by any of the following problems? 1. Little interest or pleasure in doing things: not at all 2. Feeling down, depressed, or hopeless: not at all 3. Trouble falling or staying asleep, or sleeping too much: not at all 4. Feeling tired or having little energy: not at all 5. Poor appetite or overeating: not at all 6. Feeling bad about yourself - or that you are a failure or have let yourself or your family down: not at all 7. Trouble concentrating on things, such as reading the newspaper or watching television: not at all 8. Moving or speaking so slowly that other people could have noticed. Or the opposite - being so fidgety or restless that you have been moving around a lot more than usual: not at all 9. Thoughts that you would be better off or of hurting yourself in some way: not at all Total score: 0 Depression Screening Interpretation: Negative Depression Screening Done: Yes Source: Developed by Drs. Raymond Hein, Kanwal Coello, Dick Henning and colleagues, with an educational monroe from [employer] Thrive Questionnaire Date Thrive assessed: 02/21/25 I am a: Patient What is your living situation today?: I have a steady place to live Within the past 12 months, did the food you bought not last and you didn't have the money to get more?: Never true Within the past 12 months, did you worry whether your food would run out before you got money to buy more?: Never true Do you have trouble paying for medicines?: No Do you have trouble getting transportation to medical appointments?: No Do you have trouble paying your heating and electricity bill?: No Do you have trouble taking care of your child, family member or friend?: No Do you have trouble with day-to-day activities such as bathing, preparing meals, shopping, managing finances, etc.?: No Are you currently unemployed and looking for a job?: No Are you interested in more education?: No Please select the resources that you would like help with: None Currently or been in a relationship where the following occur: No concerns reported THRIVE Score: 0 AUDIT C Alcohol Use Questionnaire (AUDIT-C) 1. How often do you have a drink containing alcohol?: 2-4 times a month 2. How many drinks containing alcohol do you have on a typical day when you are drinking?: 1 or 2 Total Score: 2 CHERYL-7 AMB Questionnaire CHERYL-7 Date CHERYL - 7 assessed: 04/17/25 Feeling nervous, anxious, or on edge: 0 = Not at all Not being able to stop or control worryin = Not at all Worrying too much about different things: 0 = Not at all Trouble relaxin = Not at all Being so restless that it is hard to sit still: 0 = Not at all Becoming easily annoyed or irritable: 0 = Not at all Feeling afraid as if something awful might happen: 0 = Not at all Total CHERYL-7 score (0-4 normal; 5-9 mild; 10-14 moderate; 15-21 severe): 0 Source: Developed by Drs. Raymond Hein, Kanwal Coello, Dick Henning and colleagues, with an educational monroe from [employer] Physical exam (Primary Care) Vital Signs: Last Vital Signs Pulse 76 04/17/25 16:00 Resp 18 04/17/25 16:00 BP 128/80 04/17/25 16:00 Pulse Ox 98 04/17/25 16:00 Oxygen Delivery Method Room Air 04/17/25 16:00 BMI result Body Mass Index 34.9 Tobacco/Smoking Status: Tobacco use Status Tobacco use date assessed 02/21/25 04/17/25 16:03 Patient Tobacco Use Status Former Tobacco user 04/17/25 16:03 Tobacco use type Cigarette 04/17/25 16:03 e-Cigarette/Vaping Use Never Used 04/17/25 16:03 PHQ-9: PHQ-9 Score PHQ-9: Total score 0 04/17/25 16:29 Depression Screening Interpretation: Negative Thrive Assessment: Date of Thrive Assessment Date Thrive assessed 02/21/25 04/17/25 16:03 Currently or been in a relationship where the following occur: No concerns reported Const General: alert; No acute distress Eyes Conjunctivae: conjunctivae normal Resp Auscultation: clear to auscultation bilaterally Cardio Rate: regular rate Rhythm: regular rhythm GI Inspection: Yes normal to inspection Extrem General: Yes normal to inspection and No edema Coding Level of Care Code Est Pt Level 4 (15896) Complex EM visit Add On G2211 Diagnoses Obesity (BMI 30-39.9) E66.9 Avascular necrosis of bones of both hips M87.051; M87.052 History of sleeve gastrectomy Z90.3 Fatty liver K76.0 Generalized anxiety disorder F41.1 Mild intermittent asthma without complication J45.20 Asthma severity: mild Asthma persistence: intermittent Asthma complication type: uncomplicated Gastroesophageal reflux disease without esophagitis K21.9 Esophagitis presence: without esophagitis Hyperhidrosis R61 Assessment & Plan Assessment & Plan (1) Obesity (BMI 30-39.9): Code(s): E66.9 - Obesity, unspecified Category: Medical Plan: And exercise (2) Avascular necrosis of bones of both hips: Comment: Repeat MRI within normal limits November 2024 Code(s): M87.051 - Idiopathic aseptic necrosis of right femur; M87.052 - Idiopathic aseptic necrosis of left femur Category: Medical Plan: Patient has been follow-up with orthopedics repeat MRI within normal limits (3) History of sleeve gastrectomy: Comment: November 15/2024 Code(s): Z90.3 - Acquired absence of stomach [part of] Category: Surgical Plan: Continue to follow-up with bariatric surgeon (4) Fatty liver: Comment: [address] biopsy done November 2023 grade 3 steatosis with steato hepatitis 2/4 Code(s): K76.0 - Fatty (change of) liver, not elsewhere classified Category: Medical Plan: Low-fat diet (5) Generalized anxiety disorder: Comment: Declined counseling February 2022 Code(s): F41.1 - Generalized anxiety disorder Category: Medical Plan: Continue with clonazepam, fluoxetine, mirtazapine (6) Asthma: Code(s): J45.909 - Unspecified asthma, uncomplicated Category: Medical Qualifiers: Asthma severity: mild Asthma persistence: intermittent Asthma complication type: uncomplicated Qualified Code(s): J45.20 - Mild intermittent asthma, uncomplicated Plan: Patient has the albuterol as needed with Flovent (7) GERD (gastroesophageal reflux disease): Code(s): K21.9 - Gastro-esophageal reflux disease without esophagitis Category: Medical Qualifiers: Esophagitis presence: without esophagitis Qualified Code(s): K21.9 - Gastro-esophageal reflux disease without esophagitis Plan: Avoid the foods that causes that usually spicy foods, tomato products, juices, coffee, soda and foods that your sensitive to. After eating do not lie down, allow 3-4 hours before in lie down. And keep the head of bed above 30 degrees to avoid the acid from going up. (8) Hyperhidrosis: Code(s): R61 - Generalized hyperhidrosis Category: Medical Plan: Refill done on medication. Medications: Refilled tirzepatide (weight loss) (Zepbound) for 4 weeks 2.5 mg (0.5 mL) subcut QWEEK 2 mL 2RF E66.9 - Obesity, unspec ified oxybutynin chloride ER 5 mg PO DAILY 30 tabs 2RF R61 - Generalized hyperhidrosis
--- OUTSIDE RECORDS SUMMARY | 2025-04-17 18:09 | XMS_ITS | Data Portability ---
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 Plan of Treatment Reminders Order Date Submit Date Provider Last Modified By Organization Details Last Modified Time Details Appointments None recorded. Lab rapid strep group A, throat 2021 [facility], [address] [place] [address], [id number], 12:37:00 rapid SARS CoV 2 Ag, QL IA, respiratory specimen 2021 [facility], [address] [place] [address], [phone], 12:37:00 Referral None recorded. Procedures None recorded. Surgeries None recorded. Imaging None recorded. Medication Orders azithromyci n 250 mg tablet 2021 [id number], [address], [place], [phone], 12:37:14 Patient TargetsNo targets recorded. Patient Instructions Encounter Date Encounter Id Patient Instructions Last Modified By Organization Details Last Modified Time 11/04/2022 [id number] sore throat: car e instructions Not available [...] Unknown Analyte Normal =Negat [place] Not Available [address] [place] [address], [phone], 11/04/2022 11:50:21 11/04/20 22 11/04/2022 rapid SARS CoV 2 Ag, QL IA, respi rator y speci men Unknown Analyte negati ve Not Available [address] [place] [address], [phone], 11/04/2022 11:50:21 11/04/20 22 11/04/2022 rapid strep group A, throa t Unknown Analyte Normal = Negati ve Not Available [address] [place] [address], [phone], 11/04/2022 11:27:18 11/04/20 22 11/04/2022 rapid strep group A, throa t Unknown Analyte negati ve Not Available [address] [place] [address], [phone], 11/04/2022 11:27:18 Result Notes None recorded. Problems Name Problem SNOMED Code Status Onset Date Resolution Date Notes Provider Name and Address Organization Details Recorded Time Gastroesophage al reflux disease 278341832 Active 2021 JCARLOS Palacios - [facility] 11:30:50 Hypertensive disorder 59455352 Active 2021 WAYNE VALDEZ null, [place] - [facility] 2 11:30:59 Asthma 605617586 Active 2021 WAYNE VALDEZ null, PA - [facility] 2 11:31:06 Right colectomy Active 2021 WAYNE COURTNEY null, PA - [facility] 11:31:21 Chronic colitis 96181327 Active 2021 WAYNE VALDEZ null, PA - [...] Last Updated DateTime 182.88 cm 42 kg/m2 321042. 63 g 99 % 99 % 70 /min 18 /min 98.2 [degF] 138 mm[Hg] 91 mm[Hg] WAYNE VALDEZ PA - [employer] 11:35:49 Social History Question Answer Notes LastModified by [employer] Details LastModified Time Tobacco Smoking Status Never Smoker WAYNE beltran [place] - [facility] 11/04/2022 11:33:02 Have You Recently Traveled Abroad? No Information not available 11/04/2022 Sex: Unknown Functional Status Question Answer Note LastModified by [employer] Details LastModified Time Do you use any illicit or recreational drugs? No Information not available 11/04/2022 Do you or have you ever used any other forms of tobacco or nicotine? No Information not available 11/04/2022 What is your level of alcohol consumption? None Information not available 11/04/2022 Are you currently employed? Yes Information not available 11/04/2022 Mental Status None recorded. Family History Relationship [...] dose or 50 mcg/0.25mL dose 02/21/2022 completed WAYNE beltran PA - [facility] 11/04/2022 11:29:39 COVID-19, mRNA, LNP-S, PF, 100 mcg/0.5mL dose or 50 mcg/0.25mL dose 03/21/2022 completed WAYNE beltran PA - [facility] 11/04/2022 11:29:39 Past Encounters Encounter ID Performer Location Encounter Start Date Encounter Closed Date Diagnosis/Indication Diagnosis SNOMED-CT Code Diagnosis ICD10 Code Diagnosis Note [id number] [facility] [address] [address] 11/04/2022 08:48:39 11/04/2022 12:47:05 Acute sinusitis 77593484 J01.90 Health Concerns Section Related Observation LastModified by Organization Detai ls LastModified Time None Recorded Concern Status LastModified by Organization Details LastModified Time None Recorded Advance Directives Directive None Recorded Payers Insurance Date Sequence Insurance Name Policy Number Policy Bowen Covered Member ID Bowen Member ID Guarantor Name 11/22/2022 1 [facility] [id number] Alexflora Morales [id number] Alex Dyer Notes Date Note Type Note Provider Name and Address Organization Details Recorded Time 2 text/html Sore throatReported bypatient.Source of patient informationInformation obtained from patient; Patient arrived at Urgent Care ambulatory Location:throat Severity:moderate Onset/Timin months [facility] Deal [address] [place] [address] [place], [address], [place] - [facility] 11/04/2022 12:37:45
== END 2025-04-17 16:45 | disposition home or self-care (01) ==
LOC: HO.HMCH 15:49
PROVIDERS: PCP Internal Medicine; Visit Provider Internal Medicine
DX: M87.051 Idiopathic aseptic necrosis of right femur (principal); M87.052 Idiopathic aseptic necrosis of left femur; E66.9 Obesity, unspecified; Z68.34 Body mass index [BMI] 34.0-34.9, adult; Z90.3 Acquired absence of stomach [part of]; K76.0 Fatty (change of) liver, not elsewhere classified; F41.1 Generalized anxiety disorder; J45.20 Mild intermittent asthma, uncomplicated; K21.9 Gastro-esophageal reflux disease without esophagitis; R61 Generalized hyperhidrosis

== ENCOUNTER → 2025-04-17 15:48 | Outpatient (BNVA) | payer BC, SELFPAY | PROVIDERS: PCP Internal Medicine; Visit Provider Internal Medicine ==